=== PATIENT | female | born 1980 | race Caucasian/White ===

== ENCOUNTER 2021-05-18 17:30 | Emergency (ER) | payer MEDICAID, SELFPAY ==
[2021-05-18 17:32] VITALS: BP 137/73; PULSE 95; RESP 18; TEMP 36.7; O2SAT 98; BMI 24.5
--- NOTE | 2021-05-18 17:46 | HMH.EDANX ---
ED Disposition Clinical Impression: Anxiety Disposition: Home, Self-Care Condition on Discharge: Good Instructions: DI for Anxiety -- Adult Prescriptions: hydrOXYzine HCL [Hydroxyzine HCl] 25 mg PO TID PRN #15 tab PRN Reason: Anxiety Prescription Printed Referrals: Gayle Rivas APRN [Primary Care Provider] - 3 days - Critical Care Critical Care Time: No Attestation: On , the high probability of a clinically significant, sudden or life threatening deterioration of the following system(s) required my full and direct attention, intervention and personal management. The time I documented below is in addition to time spent performing reported procedures but includes the following listed in this critical care notation. Medical Decision Making - Murphy Inquiry Pt receiving controlled substance: No Orders (Tests/Meds): ED MEDICATIONS Discontinued Medications Generic Name Dose Route Start Last Admin Trade Name Freq PRN Reason Stop Dose Admin Hydroxyzine Pamoate 50 mg 05/18/21 17:43 Hydroxyzine Pamoate 25mg Capsule PO 05/18/21 17:44 ONCE ONE Medical Decision Narrative: Patient with anxiety attack typical for her usual symptoms. She improved with Vistaril here. No suicidal or homicidal ideation. Discussed follow-up with PCP and consideration of SSRIs, counseling. No objective shortness of breath, PERC negative. No chest pain that would suggest ACS. Patient agreeable with plan, discharged home. Anxiety HPI - General Stated Complaint: Anixiety ,sob Time Seen by Provider: 05/18/21 17:46 Mode of Arrival: Ambulatory Source of Information: Patient Limitations: No Limitations - History of Present Illness HPI narrative: This is a 41-year-old female with a past medical history significant for anxiety, depression who presents to the emergency department for evaluation of anxiety attack that started tonight just prior to arrival while she was sitting on the couch watching TV at home. No known particular exacerbating or alleviating factors. It caused her to be tearful and feels short of breath, though she knows objectively she is not. No chest pain. She has about 2 these episodes a month and does not currently take any SSRIs. She denies any suicidal or homicidal ideation. No recent illnesses or fevers. - Related Data Home Medications: Home Medications Medication Instructions Recorded Confirmed escitalopram oxalate 10 mg tablet 5 mg PO HS tab 10/10/17 hydroxyzine pamoate 25 mg capsule 25 mg PO TID PRN cap 10/10/17 Previous Rx's Medication Instructions Recorded hydrOXYzine HCL [Hydroxyzine HCl] 25 mg PO TID PRN #15 tab 05/18/21 Allergies/Adverse Reactions: Allergies Allergy/AdvReac Type Severity Reaction Status Date / Time No Known Allergies Allergy Verified 10/10/17 08:55 [facility] History - Hepatitis A Screen Attestation statement:: This patient has been screened for Hepatitis A risk factors. I have reviewed the patient's past medical history: Yes Medical History: Reports:: Anxiety, Depression ROS Obtained: Yes All systems reviewed & no additional complaints Physical Exam - General General appearance: alert, anxious - Head Head exam: atraumatic, normocephalic - Eye Eye exam: Present: normal appearance, PERRL - ENT ENT exam: Present: normal exam, normal oropharynx, mucous membranes moist - Respiratory Respiratory exam: Present: normal lung sounds bilaterally. Absent: respiratory distress - Cardiovascular Cardiovascular exam: Present: regular rate, normal rhythm - Abdominal Exam Abdominal exam: Present: soft. Absent: distention, tenderness, guarding - Neurological Exam Neurological exam: Present: alert, oriented X3 - Skin Skin exam: Present: warm, dry
[2021-05-18 18:10] VITALS: BP 146/82; PULSE 83; RESP 18; TEMP 36.8; O2SAT 98
== END 2021-05-18 18:16 | disposition home or self-care (01) ==
PROVIDERS: Emergency Provider Emergency Medicine; PCP Nurse Practitioner Family
DX: F41.9 Anxiety disorder, unspecified (principal); Z79.899 Other long term (current) drug therapy
CPT/HCPCS: 99281

== ENCOUNTER → 2021-06-01 16:09 | Outpatient (CLI) | payer MEDICAID, SELFPAY ==
[2021-06-01 16:30] LABS: Basophils # 0.1 K/mm3 (0-0.2); Basophils % 0.7 % (0.1-2.0); Eosinophils # 0.1 K/mm3 (0.0-0.4); Eosinophils % 0.5 % (0.1-12.0); Hematocrit 49.1 % (37.0-47.0); Hemoglobin 16.4 g/dL (12.2-16.2); Lymphocytes # 1.7 K/mm3 (0.7-4.5); Lymphocytes % 16.5 % (10-50); Mean Corpuscular HGB Conc 33.3 g/dL (31.8-35.4); Mean Corpuscular Hemoglobin 32.1 pg (27.0-31.2); Mean Corpuscular Volume 96.6 fl (81-99); Mean Platelet Volume 9.6 fl (7.4-10.4); Monocytes # 0.6 K/mm3 (0.1-1.0); Monocytes % 5.7 % (1.7-9.3); Neutrophils # 8.1 K/mm3 (1.8-7.8); Neutrophils % 76.7 % (37.0-80.0); Platelet Count 306 K/mm3 (142-424); Red Blood Count 5.09 M/mm3 (4.20-5.40); Red Cell Distribution Width 12.6 % (11.5-17.5); White Blood Count 10.6 K/mm3 (4.8-10.8)
[2021-06-01 17:57] LABS: Free T4 (Free Thyroxine) 0.98 ng/dl (0.78-2.19)
[2021-06-01 18:04] LABS: Alanine Aminotransferase 13 U/L (12-78); Albumin Level 4.7 g/dl (3.5-5.0); Albumin/Globulin Ratio 1.6 (1.1-1.8); Alkaline Phosphatase 49 U/L (38-126); Anion Gap 19.9 mEq/L (5-15); Aspartate Amino Transferase 21 U/L (14-36); Bilirubin,Total 0.4 mg/dl (0.2-1.3); Blood Urea Nitrogen 11 mg/dl (7-17); Calcium 9.6 mg/dl (8.4-10.2); Carbon Dioxide 24 mmol/L (22.0-30.0); Chloride 100 mmol/L (98-107); Chol/HDL Ratio 4.5 (1-3.5); Cholesterol 263 mg/dl (140-200); Estimated Glomerular Filt Rate 92 ml/min (>60); GFR (African American) 112 ML/MIN (>60); Globulin 2.9 g/dL (1.3-3.2); Glucose 83 mg/dl (74-100); HDL Cholesterol 58 mg/dl (40-60); Potassium 4.9 mmoL/L (3.5-5.1); Sodium 139 mmol/L (136-145); Total Protein,Serum 7.6 g/dl (6.3-8.2); Triglycerides 88 mg/dl (30-150); VLDL Cholesterol 18 mg/dL (0-40)
[2021-06-01 18:35] LABS: Thyroid Stimulating Hormone 1.37 uIU/mL (0.465-4.68)
== END ==
PROVIDERS: Visit Provider Nurse Practitioner Family
DX: Z00.00 Encounter for general adult medical examination without abnormal findings (principal)
CPT/HCPCS: 80053; 80061; 84439; 84443; 85025

== ENCOUNTER 2021-06-10 06:25 | Emergency (ER) | payer MEDICAID, SELFPAY ==
[2021-06-10 06:27] VITALS: BP 119/50; PULSE 77; RESP 17; TEMP 36.9; O2SAT 99; BMI 26.4
[2021-06-10 06:40] VITALS: BP 119/50; PULSE 91; RESP 18; O2SAT 98
[2021-06-10 06:48] VITALS: BMI 26.4
[2021-06-10 07:06] LABS: Microscopic, Urine URINE MICROSCOPIC (MICROSCOPIC)
[2021-06-10 07:12] LABS: Basophils # 0.1 K/mm3 (0-0.2); Eosinophils # 0.3 K/mm3 (0.0-0.4); Eosinophils % 2.7 % (0.1-12.0); Hematocrit 42.7 % (37.0-47.0); Hemoglobin 13.8 g/dL (12.2-16.2); Lymphocytes # 2.8 K/mm3 (0.7-4.5); Lymphocytes % 26.9 % (10-50); Mean Corpuscular HGB Conc 32.2 g/dL (31.8-35.4); Mean Corpuscular Hemoglobin 31.2 pg (27.0-31.2); Mean Corpuscular Volume 96.9 fl (81-99); Monocytes # 0.8 K/mm3 (0.1-1.0); Monocytes % 7.2 % (1.7-9.3); Neutrophils # 6.5 K/mm3 (1.8-7.8); Neutrophils % 62.2 % (37.0-80.0); Platelet Count 287 K/mm3 (142-424); Red Blood Count 4.41 M/mm3 (4.20-5.40); Red Cell Distribution Width 12.9 % (11.5-17.5); White Blood Count 10.4 K/mm3 (4.8-10.8)
[2021-06-10 07:13] LABS: Appearance,Urine SL CLOUDY (Clear); Bilirubin,Urine Negative (Negative); Blood, Urine Negative (Negative); Color,Urine YELLOW (Yellow); Glucose,Urine (UA) Negative (Negative); Ketones,Urine Negative (Negative); Leukocyte Esterase,Urine Negative (Negative); Nitrate,Urine Negative (Negative); PH,Urine 5.5 (5.0-8.5); Protein,Urine Negative (Negative); Specific Gravity, Urine 1.015 (1.005-1.030); Urobilinogen,Urine 0.2 EU/dl (0.2)
[2021-06-10 07:16] LABS: Alanine Aminotransferase 59 U/L (12-78); Albumin Level 3.8 g/dl (3.5-5.0); Albumin/Globulin Ratio 1.4 (1.1-1.8); Alkaline Phosphatase 60 U/L (38-126); Anion Gap 10.7 mEq/L (5-15); Aspartate Amino Transferase 40 U/L (14-36); Bilirubin,Total 0.1 mg/dl (0.2-1.3); Blood Urea Nitrogen 11 mg/dl (7-17); Calcium 8.8 mg/dl (8.4-10.2); Carbon Dioxide 31 mmol/L (22.0-30.0); Chloride 102 mmol/L (98-107); Creatinine Clearance Estimated 93 mL/min (50-200); Estimated Glomerular Filt Rate 79 ml/min (>60); GFR (African American) 96 ML/MIN (>60); Globulin 2.8 g/dL (1.3-3.2); Glucose 101 mg/dl (74-100); Potassium 3.7 mmoL/L (3.5-5.1); Sodium 140 mmol/L (136-145); Total Protein,Serum 6.6 g/dl (6.3-8.2)
[2021-06-10 07:23] LABS: Amorphous Sediment,Urine 1+ /lpf
[2021-06-10 07:27] LABS: NT Pro Brain Natriuretic Pep. 255 pg/mL (0-125)
[2021-06-10 07:30] VITALS: BP 104/45; PULSE 74; RESP 20; O2SAT 96
[2021-06-10 07:34] LABS: Procalcitonin 0.071 ng/mL (0.0-2.0)
--- NOTE | 2021-06-10 07:39 | HMH.EDEXTP ---
ED Disposition Clinical Impression: Lower extremity edema, Abnormal drug screen Disposition: Home, Self-Care Condition on Discharge: Good Instructions: DI for Peripheral Edema -- Bilateral Additional Instructions: see pcp next saturday and monitor diet Prescriptions: hydroCHLOROthiazide [HCTZ 12.5mg cap] 12.5 mg PO DAILY #10 cap Transmission Status: Pending to [id number] Referrals: Kari Alcala PA [Primary Care Provider] - - Critical Care Critical Care Time: No Attestation: On 06/10/21, the high probability of a clinically significant, sudden or life threatening deterioration of the following system(s) required my full and direct attention, intervention and personal management. The time I documented below is in addition to time spent performing reported procedures but includes the following listed in this critical care notation. Medical Decision Making - Medical Records Medical records reviewed: Yes: I reviewed the patient's medical records. - Murphy Inquiry Pt receiving controlled substance: No Vital Signs: 06/10/21 06:27 06/10/21 06:40 06/10/21 07:30 Temperature 98.5 F Temperature Source Oral Pulse Rate 91 H 74 Pulse Rate [Right] 77 Respiratory Rate 17 18 20 Blood Pressure 119/50 L 104/45 L Blood Pressure [Right Arm] 119/50 L Blood Pressure Mean 67 65 Blood Pressure Mean [Right Arm] 73 02 Sat by Pulse Oximetry 99 98 96 Oxygen Delivery Method Room Air - Lab Data Lab results reviewed: Yes: I reviewed the patient's lab results. Lab Results 06/10/21 06:35: Urine Color Yellow, Urine Appearance Sl cloudy, Urine pH 5.5, Ur Specific [place] 1.015, Urine Protein Negative, Urine Glucose (UA) Negative, Urine Ketones Negative, Urine Blood Negative, Urine Nitrate Negative, Urine Bilirubin Negative, Urine Urobilinogen 0.2, Ur Leukocyte Esterase Negative, Urine RBC None, Urine WBC None, Ur Squamous Epith Cells 10-20, Amorphous Sediment 1+, Urine Bacteria None 06/10/21 06:35: Urine Opiates Screen Positive H, Urine Methadone Screen Negative, Ur Barbituates Screen Negative, Ur Phencyclidine Scrn Negative, Ur Amphetamines Screen Negative, U Benzodiazepines Scrn Positive H, U Marijuana (THC) Screen Negative 06/10/21 06:40: WBC 10.4, RBC 4.41, Hgb 13.8, Hct 42.7, MCV 96.9, MCH 31.2, MCHC 32.2, RDW 12.9, Plt Count 287, MPV 9.0, Neut % (Auto) 62.2, Lymph % (Auto) 26.9, [place] % (Auto) 7.2, Eos % (Auto) 2.7, Baso % (Auto) 1.0, Neut # (Auto) 6.5, Lymph # (Auto) 2.8, [place] # (Auto) 0.8, Eos # (Auto) 0.3, Baso # (Auto) 0.1 06/10/21 06:40: Sodium 140, Potassium 3.7, Chloride 102, Carbon Dioxide 31 H, Anion Gap 10.7, BUN 11, Creatinine 0.80, Estimated Creat Clear 93, Estimated GFR 79, Est GFR ( Amer) 96, Glucose 101 H, Calcium 8.8, Total Bilirubin 0.1 L, AST 40 H, ALT 59, Alkaline Phosphatase 60, C-Reactive Protein 7.0 H, NT-Pro-B Natriuret Pep 255 H, Total Protein 6.6, Albumin 3.8, Globulin 2.8, Albumin/Globulin Ratio 1.4, Procalcitonin 0.071 06/10/21 06:40: TSH 2.78, Thyroxine (T4) 8.4 Result diagrams: 06/10/21 06:40 06/10/21 06:40 Orders (Tests/Meds): ED MEDICATIONS Discontinued Medications Generic Name Dose Route Start Last Admin Trade Name Freq PRN Reason Stop Dose Admin Furosemide 20 mg 06/10/21 07:44 06/10/21 07:49 Furosemide 20 Mg/2 Ml Vial IV 06/10/21 07:45 20 mg ONCE ONE Administration ORDERS Category Date Time Status UDS [Drug Screen,Urine] Stat Lab 06/10/21 06:35 Results Medical Decision Narrative: had 600 ml after lasix and anastacio ask pt to use low carb and sodium diet and discussed uds with pt Extremity Problem HPI - General Chief complaint: Extremity Problem,Nontraumatic Stated complaint: Swelling in feet and face Time Seen by Provider: 06/10/21 07:00 Mode of Arrival: Family Vehicle Source of Information: Patient, Medical Record Limitations: No Limitations Description of Symptoms (Recalled from ER Triage Doc. by RN): Pt c/o face fe
[2021-06-10 08:04] LABS: Amphetamine/Metha Screen,Urine Negative ng/ml (<1000)
[2021-06-10 08:05] LABS: Barbiturates Screen,Urine Negative ng/ml (<200); Benzodiazepines Screen,Urine Positive ng/ml (<200)
[2021-06-10 08:06] LABS: Cannabinoid Screen,Urine Negative ng/ml (<50)
[2021-06-10 08:07] LABS: Methadone Screen,Urine Negative ng/ml (<300)
[2021-06-10 08:08] LABS: Opiate Screen,Urine Positive ng/ml (<300)
[2021-06-10 08:08] LABS: T4 (Thyroxine) 8.4 ug/dl (5.53-11.0)
[2021-06-10 08:09] LABS: Phencyclidine Screen,Urine Negative ng/ml (<25)
--- NOTE | 2021-06-10 08:12 | PC.NURSE ---
200cc urine output
[2021-06-10 08:22] LABS: Thyroid Stimulating Hormone 2.78 uIU/mL (0.465-4.68)
[2021-06-10 08:52] LABS: Cocaine Screen,Urine Negative ng/ml (<300)
--- NOTE | 2021-06-10 08:52 | PC.NURSE ---
400 cc urine output
[2021-06-10 09:07] VITALS: BP 118/63; PULSE 71; RESP 16; TEMP 36.8; O2SAT 98
== END 2021-06-10 09:09 | disposition home or self-care (01) ==
PROVIDERS: Emergency Provider Emergency Medicine; PCP Physician Assistant
DX: R60.0 Localized edema (principal); R89.2 Abnormal level of other drugs, medicaments and biological substances in specimens from other organs, systems and tissues; F41.8 Other specified anxiety disorders
CPT/HCPCS: 80053; 80305; 81001; 83880; 84145; 84436; 84443; 85025; 86140; 96374; 99282

== ENCOUNTER 2021-07-31 19:54 | Emergency (ER) | payer MEDICAID, SELFPAY ==
[2021-07-31 19:54] VITALS: BP 138/79; PULSE 85; RESP 18; TEMP 36.9; O2SAT 99; BMI 26.4
--- NOTE | 2021-07-31 20:15 | CT_ITS ---
PROCEDURE INFORMATION: Exam: CT Thoracic Spine With Contrast Exam date and time: 07/31/2021 8:15 PM Age: 41 years old Clinical indication: Pain in thoracic spine; Patient HX: Neck pain, numbness and tingling in arms off and on; Additional info: Neck pain, no trauma TECHNIQUE: Imaging protocol: Computed tomography images of the thoracic spine with intravenous contrast. Radiation optimization: All CT scans at this facility use at least one of these dose optimization techniques: automated exposure control; mA and/or kV adjustment per patient size (includes targeted exams where dose is matched to clinical indication); or iterative reconstruction. Contrast material: ISOVUE; Contrast volume: 75 ml; Contrast route: IV; COMPARISON: CT CERVICAL SPINE W CON 07/31/2021 8:45 PM FINDINGS: Vertebrae: Mild scoliosis and degenerative changes. No acute fracture or dislocation. Soft tissues: Unremarkable. Lungs: Streaky dependent pulmonary opacities and dependent subpleural nodules measuring up to 4 mm which are not further evaluated. IMPRESSION: Chronic changes without definite acute osseous abnormality. If there is ongoing concern MRI can be obtained for further evaluation.
--- NOTE | 2021-07-31 20:15 | CT_ITS ---
PROCEDURE INFORMATION: Exam: CT Cervical Spine With Contrast Exam date and time: 07/31/2021 8:15 PM Age: 41 years old Clinical indication: Patient HX: Neck pain, numbness and tingling in arms off and on; Additional info: Neck pain, no trauma TECHNIQUE: Imaging protocol: Computed tomography images of the cervical spine with intravenous contrast. Radiation optimization: All CT scans at this facility use at least one of these dose optimization techniques: automated exposure control; mA and/or kV adjustment per patient size (includes targeted exams where dose is matched to clinical indication); or iterative reconstruction. Contrast material: ISOVUE; Contrast volume: 75 ml; Contrast route: IV; COMPARISON: No relevant prior studies available. FINDINGS: Bones/joints: Mild degenerative changes of the cervical spine most prominent at C5-C6 where there is a 4 mm disc bulge. No acute fracture. Lungs: Lung apices are normal. Soft tissues: Unremarkable. IMPRESSION: Degenerative changes of the cervical spine most prominent at C5-C6 where there is a 4 mm disc bulge. Consider MRI for further evaluation.
[2021-07-31 20:23] LABS: Basophils # 0.2 K/mm3 (0-0.2); Basophils % 1.5 % (0.1-2.0); Eosinophils # 0.2 K/mm3 (0.0-0.4); Eosinophils % 1.9 % (0.1-12.0); Hematocrit 47.2 % (37.0-47.0); Hemoglobin 15.5 g/dL (12.2-16.2); Lymphocytes # 2.9 K/mm3 (0.7-4.5); Lymphocytes % 28.5 % (10-50); Mean Corpuscular HGB Conc 32.8 g/dL (31.8-35.4); Mean Corpuscular Volume 94.7 fl (81-99); Mean Platelet Volume 8.4 fl (7.4-10.4); Monocytes # 0.6 K/mm3 (0.1-1.0); Monocytes % 5.7 % (1.7-9.3); Neutrophils # 6.3 K/mm3 (1.8-7.8); Neutrophils % 62.3 % (37.0-80.0); Platelet Count 320 K/mm3 (142-424); Red Blood Count 4.98 M/mm3 (4.20-5.40); Red Cell Distribution Width 12.6 % (11.5-17.5); White Blood Count 10.1 K/mm3 (4.8-10.8)
[2021-07-31 20:30] LABS: Microscopic, Urine URINE MICROSCOPIC (MICROSCOPIC)
[2021-07-31 20:33] LABS: Appearance,Urine SL CLOUDY (Clear); Bilirubin,Urine Negative (Negative); Blood, Urine TRACE-I (Negative); Color,Urine YELLOW (Yellow); Glucose,Urine (UA) Negative (Negative); Ketones,Urine Negative (Negative); Leukocyte Esterase,Urine Negative (Negative); Nitrate,Urine POSITIVE (Negative); Protein,Urine Negative (Negative); Specific Gravity, Urine 1.025 (1.005-1.030); Urobilinogen,Urine 0.2 EU/dl (0.2)
[2021-07-31 20:34] LABS: Alanine Aminotransferase 18 U/L (12-78); Albumin/Globulin Ratio 1.3 (1.1-1.8); Alkaline Phosphatase 63 U/L (38-126); Anion Gap 9.1 mEq/L (5-15); Aspartate Amino Transferase 31 U/L (14-36); Blood Urea Nitrogen 9 mg/dl (7-17); Calcium 9.2 mg/dl (8.4-10.2); Carbon Dioxide 31 mmol/L (22.0-30.0); Chloride 104 mmol/L (98-107); Creatinine Clearance Estimated 93 mL/min (50-200); Estimated Glomerular Filt Rate 79 ml/min (>60); GFR (African American) 96 ML/MIN (>60); Globulin 3.1 g/dL (1.3-3.2); Glucose 134 mg/dl (74-100); Potassium 4.1 mmoL/L (3.5-5.1); Sodium 140 mmol/L (136-145); Total Protein,Serum 7.1 g/dl (6.3-8.2)
[2021-07-31 20:36] LABS: Bilirubin,Total < 0.1 mg/dl (0.2-1.3)
[2021-07-31 20:40] LABS: C-Reactive Protein 4.9 mg/L (0-4)
[2021-07-31 20:44] LABS: Bacteria,Urine 2+ /lpf; Benzodiazepines Screen,Urine Positive ng/ml (<200)
[2021-07-31 20:45] LABS: Amphetamine/Metha Screen,Urine Negative ng/ml (<1000)
[2021-07-31 20:46] LABS: Barbiturates Screen,Urine Negative ng/ml (<200); Cannabinoid Screen,Urine Negative ng/ml (<50)
[2021-07-31 20:47] LABS: Cocaine Screen,Urine Negative ng/ml (<300)
[2021-07-31 20:48] LABS: Methadone Screen,Urine Negative ng/ml (<300); Opiate Screen,Urine Positive ng/ml (<300)
[2021-07-31 20:49] LABS: Phencyclidine Screen,Urine Negative ng/ml (<25)
[2021-07-31 20:53] LABS: Procalcitonin 0.045 ng/mL (0.0-2.0)
[2021-07-31 21:15] LABS: Erythrocyte Sedimentation Rate 20 mm/hr (0-20)
--- NOTE | 2021-07-31 22:25 | HMH.EDNECK ---
ED Disposition Clinical Impression: Cervical radiculopathy Disposition: Home, Self-Care Condition on Discharge: Good Instructions: DI for Neck Pain Additional Instructions: see pcp for follow up this week Prescriptions: predniSONE [Prednisone 20mg Tab] 20 mg PO BID #10 tab Transmission Status: Pending to [id number] Referrals: Kari Alcala PA [Primary Care Provider] - - Critical Care Critical Care Time: No Attestation: On 07/31/21, the high probability of a clinically significant, sudden or life threatening deterioration of the following system(s) required my full and direct attention, intervention and personal management. The time I documented below is in addition to time spent performing reported procedures but includes the following listed in this critical care notation. Medical Decision Making - Medical Records Medical records reviewed: Yes: I reviewed the patient's medical records. - Murphy Inquiry Pt receiving controlled substance: No Vital Signs: 07/31/21 19:54 Temperature 98.5 F Temperature Source Oral Pulse Rate [Right] 85 Respiratory Rate 18 Blood Pressure [Right Arm] 138/79 Blood Pressure Mean [Right Arm] 98 Blood Pressure Source [Right Arm] Automatic Cuff 02 Sat by Pulse Oximetry 99 Oxygen Delivery Method Room Air - Lab Data Lab results reviewed: Yes: I reviewed the patient's lab results. Lab Results 07/31/21 20:15: WBC 10.1, RBC 4.98, Hgb 15.5, Hct 47.2 H, MCV 94.7, MCH 31.0, MCHC 32.8, RDW 12.6, Plt Count 320, MPV 8.4, Neut % (Auto) 62.3, Lymph % (Auto) 28.5, [place] % (Auto) 5.7, Eos % (Auto) 1.9, Baso % (Auto) 1.5, Neut # (Auto) 6.3, Lymph # (Auto) 2.9, [place] # (Auto) 0.6, Eos # (Auto) 0.2, Baso # (Auto) 0.2, ESR 20 07/31/21 20:15: Sodium 140, Potassium 4.1, Chloride 104, Carbon Dioxide 31 H, Anion Gap 9.1, BUN 9, Creatinine 0.80, Estimated Creat Clear 93, Estimated GFR 79, Est GFR ( Amer) 96, Glucose 134 H, Calcium 9.2, Total Bilirubin < 0.1 L, AST 31, ALT 18, Alkaline Phosphatase 63, C-Reactive Protein 4.9 H, Total Protein 7.1, Albumin 4.0, Globulin 3.1, Albumin/Globulin Ratio 1.3, Procalcitonin 0.045 07/31/21 20:25: Urine Color Yellow, Urine Appearance Sl cloudy, Urine pH 6.0, Ur Specific [place] 1.025, Urine Protein Negative, Urine Glucose (UA) Negative, Urine Ketones Negative, Urine Blood Trace-i, Urine Nitrate Positive, Urine Bilirubin Negative, Urine Urobilinogen 0.2, Ur Leukocyte Esterase Negative, Urine RBC 3-5, Urine WBC 5-10, Ur Squamous Epith Cells 5-10, Urine Bacteria 2+ 07/31/21 20:25: Urine Opiates Screen Positive H, Urine Methadone Screen Negative, Ur Barbituates Screen Negative, Ur Phencyclidine Scrn Negative, Ur Amphetamines Screen Negative, U Benzodiazepines Scrn Positive H, Urine Cocaine Screen Negative, U Marijuana (THC) Screen Negative Result diagrams: 07/31/21 20:15 07/31/21 20:15 Orders (Tests/Meds): ED MEDICATIONS Generic Name Dose Route Start Last Admin Trade Name Freq PRN Reason Stop Dose Admin Sodium Chloride 1,000 mls @ 999 mls/hr 07/31/21 20:45 07/31/21 20:36 Sod Chlor 0.9% 1000ml Bag IV 07/31/21 21:45 999 mls/hr .Q1H1M CHECO Administration Discontinued Medications Generic Name Dose Route Start Last Admin Trade Name Freq PRN Reason Stop Dose Admin Iopamidol 150 ml 07/31/21 21:02 07/31/21 21:02 Iopamidol-370 (76%);100ml Bottle IV 07/31/21 21:03 150 ml ONCE ONE Administration Ketorolac Tromethamine 30 mg 07/31/21 20:32 07/31/21 20:35 Ketorolac 30mg/Ml Vial IV 07/31/21 20:33 30 mg ONCE ONE Administration Methylprednisolone Sodium Succinate 125 mg 07/31/21 20:32 07/31/21 20:35 Methylprednisolone Sod Succ 125mg Vial IV 07/31/21 20:33 125 mg ONCE ONE Administration Sodium Chloride 10 ml 07/31/21 21:02 07/31/21 21:02 Sodium Chloride 0.9% 10ml Syr (Rad Only) IV 07/31/21 21:03 10 ml ONCE ONE Administration ORDERS Category Date Time Status Urine Culture St
[2021-07-31 22:26] VITALS: BP 138/79; PULSE 85; RESP 18; TEMP 36.9; O2SAT 98
== END 2021-07-31 22:42 | disposition home or self-care (01) ==
PROVIDERS: Emergency Provider Emergency Medicine; PCP Physician Assistant
DX: M54.12 Radiculopathy, cervical region (principal); F41.8 Other specified anxiety disorders
CPT/HCPCS: 72126; 72129; 80053; 80305; 81001; 84145; 85025; 85651; 86140; 87086; 87088; 87186; 99283; Q9967

== ENCOUNTER 2021-08-23 13:29 | Emergency (ER) | payer MEDICAID, SELFPAY ==
[2021-08-23 13:31] VITALS: BP 122/70; PULSE 75; RESP 18; TEMP 36.8; O2SAT 98; BMI 27.3
--- NOTE | 2021-08-23 13:59 | XR_ITS ---
PROCEDURE: XR CHEST PORTABLE CLINICAL HISTORY: Cough COMPARISON: No exams were available for comparison FINDINGS: The cardiomediastinal silhouette and pulmonary vascularity are within normal limits. The lungs are clear without infiltrates, suspicious nodules, or pleural effusions. No acute bony abnormalities. IMPRESSION: No acute findings. Dictated by: Darci Pham MD 08/23/2021 15:14 Darci Pham MD in [place] 08/23/2021 15:14
--- NOTE | 2021-08-23 14:58 | HMH.EDURI ---
ED Disposition Clinical Impression: Upper respiratory infection Disposition: Home, Self-Care Condition on Discharge: Fair Instructions: DI for Acute Bronchitis Referrals: Kari Alcala PA [Primary Care Provider] - - Critical Care Critical Care Time: No Attestation: On 08/23/21, the high probability of a clinically significant, sudden or life threatening deterioration of the following system(s) required my full and direct attention, intervention and personal management. The time I documented below is in addition to time spent performing reported procedures but includes the following listed in this critical care notation. Medical Decision Making - Murphy Inquiry Pt receiving controlled substance: No Vital Signs: 08/23/21 13:31 Temperature 98.2 F Temperature Source Oral Pulse Rate [Right Radial] 75 Respiratory Rate 18 Blood Pressure [Right Arm] 122/70 Blood Pressure Mean [Right Arm] 87 Blood Pressure Source [Right Arm] Automatic Cuff Blood Pressure Position [Right Arm] Sitting 02 Sat by Pulse Oximetry 98 Oxygen Delivery Method Room Air Orders (Tests/Meds): ED MEDICATIONS Discontinued Medications Generic Name Dose Route Start Last Admin Trade Name Vernq PRN Reason Stop Dose Admin Acetaminophen 1,000 mg 08/23/21 13:59 08/23/21 15:04 Acetaminophen 500mg Tab PO 08/23/21 14:00 1,000 mg ONCE ONE Administration Lactated Ringer's 1,000 mls @ 999 mls/hr 08/23/21 14:00 08/23/21 15:06 Lactated Ringer's 1000 Ml Bag IV 08/23/21 15:00 999 mls/hr .Q1H1M CHECO Administration Ibuprofen 800 mg 08/23/21 13:59 08/23/21 15:04 Ibuprofen 400 Mg Tablet PO 08/23/21 14:00 800 mg ONCE ONE Administration ORDERS Category Date Time Status XR chest portable Stat Exams 08/23/21 13:59 Taken Rapid PCR Covid and Flu A/B Stat Lab 08/23/21 13:59 Ordered Medical Decision Narrative: Patient is a 41-year-old female with no past medical history presenting to the ED with cough and sore throat. Patient is awake, alert, not in acute distress. Patient is hemodynamically stable, afebrile. Patient's physical exam is unremarkable, she has clear breath sounds bilaterally. Soft nondistended nontender abdomen to differential includes but is not limited to viral upper respiratory infection, COVID-19, viral pneumonia, very low concern for a bacterial pneumonia. Given this chest x-ray was performed. Patient was given IV fluids, Tylenol, ibuprofen. She was swabbed for Covid. She feels much better after the IV fluids she is stable for discharge at this point. She is given strict return precautions and follow-up instructions. URI/Sore Throat HPI - General Chief Complaint: Upper Respiratory Infection Stated Complaint: fever, chills, sore throat, soa, cough Time Seen by Provider: 08/23/21 14:45 Mode of Arrival: Ambulatory Limitations: No Limitations Description of Symptoms (Recalled from ER Triage Doc. by RN): Pt reports productive cough x3 days, fever and sore throat. - History of Present Illness HPI Narrative: Patient is a 41-year-old female with no past medical history presenting to the ED with sore throat and a cough. Patient states that she has been ill for approximately 3 days. Patient states her symptoms started off as a runny nose with sore throat and cough. Patient states that she has mild fevers, chills. Patient denies any sick contacts. Patient is not vaccinated against COVID-19. Denies any nausea, vomiting, abdominal pain, urinary symptoms, diarrhea. - Related Data Home Medications Medication Instructions Recorded Confirmed Hydrocod/Acet 5/325 mg [[place] 1 tab PO Q6HP PRN 07/31/21 07/31/21 5/325mg tablet] hydrOXYzine HCL [Hydroxyzine HCl] See Rx Instructions .ROUTE .COMPLEX 07/31/21 07/31/21 Previous Rx's Medication Instructions Recorded predniSONE [Prednisone 20mg 20 mg PO BID #10 tab 07/31/21 Tab] Allergies Allergy/AdvReac Type Severity
[2021-08-23 16:18] LABS: Coronavirus 19, PCR Not Detected (NotDetected); Influenza A, PCR Not Detected (NotDetected); Influenza B, PCR Not Detected (NotDetected)
[2021-08-23 16:42] VITALS: BP 122/70; PULSE 75; RESP 18; TEMP 36.8; O2SAT 98
== END 2021-08-23 16:42 | disposition home or self-care (01) ==
PROVIDERS: Emergency Provider Emergency Medicine; PCP Physician Assistant
DX: J06.9 Acute upper respiratory infection, unspecified (principal); F41.8 Other specified anxiety disorders; Z20.822 Contact with and (suspected) exposure to COVID-19
CPT/HCPCS: 71045; 96365; 99282; C9803; U0003; U0005

== ENCOUNTER 2021-10-15 18:22 | Emergency (ER) | payer MEDICAID, SELFPAY ==
[2021-10-15 18:23] VITALS: BP 136/68; PULSE 116; RESP 18; TEMP 37.9; O2SAT 99; BMI 25.4
[2021-10-15 18:36] VITALS: BMI 25.4
[2021-10-15 18:39] LABS: Influenza A, PCR Not Detected (NotDetected); Influenza B, PCR Not Detected (NotDetected)
[2021-10-15 19:04] LABS: Coronavirus 19, PCR Detected (NotDetected)
--- NOTE | 2021-10-15 19:20 | HMH.EDGENADL ---
ED Disposition Clinical Impression: COVID-19 virus infection Disposition: Home, Self-Care Condition on Discharge: Good Instructions: DI for COVID-19 (Suspected or Confirmed ) Additional Instructions: Rest, drink plenty of fluids. Tylenol or Ibuprofen for fever and/or aches and pains. Zofran as needed for nausea. Monitor your symptoms. IF YOU HAVE AN EMERGENCY WARNING SIGN (INCLUDING TROUBLE BREATHING), SEEK EMERGENCY MEDICAL CARE IMMEDIATELY. COVID-19 Isolation: People with COVID-19 should isolate for 5 days. Then if they are asymptomatic (no symptoms) or their symptoms are resolving (without fever for 24 hours), follow that by 5 days of wearing a mask when around others to minimize the risk of infecting people you encounter. If you test positive for COVID-19 and never develop symptoms, day 0 is the day of your positive viral test (based on the date you were tested) and day 1 is the first full day after your positive test. If you develop symptoms after testing positive, your 5-day isolation period must start over. Day 0 is your first day of symptoms. Day 1 is the first full day after your symptoms developed. What to do: Stay in a separate room from other household members, if possible. Use a separate bathroom, if possible. Avoid contact with other members of the household and pets. Don?t share personal household items, like cups, towels, and utensils. Wear a mask when around other people if able. Prescriptions: Ondansetron [Zofran 4mg ODT] 4 mg PO TIDP PRN #10 tab PRN Reason: Nausea And Vomiting Transmission Status: Pending to [id number] Referrals: Kari Alcala PA [Primary Care Provider] - - Critical Care Critical Care Time: No Attestation: On 10/15/21, the high probability of a clinically significant, sudden or life threatening deterioration of the following system(s) required my full and direct attention, intervention and personal management. The time I documented below is in addition to time spent performing reported procedures but includes the following listed in this critical care notation. Medical Decision Making - Murphy Inquiry Pt receiving controlled substance: No Vital Signs: 10/15/21 18:23 Temperature 100.3 F H Temperature Source Oral Pulse Rate [Right Radial] 116 H Respiratory Rate 18 Blood Pressure [Right Arm] 136/68 Blood Pressure Mean [Right Arm] 90 Blood Pressure Source [Right Arm] Automatic Cuff Blood Pressure Position [Right Arm] Sitting 02 Sat by Pulse Oximetry 99 Oxygen Delivery Method Room Air - Lab Data Lab Results 10/15/21 18:33: SARS-CoV-2 (PCR) Detected A, Influenza A Untype (PCR) Not detected, Influenza Type B (PCR) Not detected Orders (Tests/Meds): ED MEDICATIONS Discontinued Medications Generic Name Dose Route Start Last Admin Trade Name Kwasi PRN Reason Stop Dose Admin Acetaminophen 650 mg 10/15/21 18:36 10/15/21 18:42 Acetaminophen 325mg Tab PO 10/15/21 18:37 650 mg ONCE ONE Administration Ibuprofen 600 mg 10/15/21 18:36 10/15/21 18:42 Ibuprofen 600 Mg Tablet PO 10/15/21 18:37 600 mg ONCE ONE Administration Medical Decision Narrative: Developed nausea and dry heaves in the emergency department. Treated with Zofran. General Adult HPI - General Chief complaint: Fever Stated complaint: fever, chills Time Seen by Provider: 10/15/21 19:23 Mode of Arrival: Ambulatory Limitations: No Limitations Description of Symptoms (Recalled from ER Triage Doc. by RN): pt reports fever, chills and headache that began approx 12pm today. Pt reports her boyfriend is also sick with similar symptoms. - History of Present Illness HPI narrative: States she just got sick today. She has fevers, chills, body aches. Mild rhinorrhea. Minimal cough. No loss of taste or smell. She states that her boyfriend had similar symptoms yesterday and the day before but seems to be better today. Her boyfriend did
[2021-10-15 20:02] VITALS: BP 114/61; PULSE 96; RESP 20; TEMP 37.3; O2SAT 97
== END 2021-10-15 20:09 | disposition home or self-care (01) ==
PROVIDERS: Emergency Provider Emergency Medicine; PCP Physician Assistant
DX: U07.1 COVID-19 (principal); F41.8 Other specified anxiety disorders
CPT/HCPCS: 99282; C9803; U0003; U0005

== ENCOUNTER 2021-10-18 20:37 | Emergency (ER) | payer MEDICAID, SELFPAY ==
[2021-10-18 20:37] VITALS: BP 142/87; PULSE 72; RESP 20; TEMP 36.8; O2SAT 100; BMI 26.4
[2021-10-18 20:49] VITALS: BMI 26.4
--- NOTE | 2021-10-18 20:50 | XR_ITS ---
PROCEDURE INFORMATION: Exam: XR Chest Exam date and time: 10/18/2021 8:50 PM Age: 41 years old Clinical indication: Shortness of breath; Additional info: SOA TECHNIQUE: Imaging protocol: XR of the chest. Views: 2 views. COMPARISON: CR XR CHEST PORTABLE 08/23/2021 2:22 PM FINDINGS: Lungs: Coarse interstitial lung markings that are chronic. No consolidation. Pleural spaces: Unremarkable. No pleural effusion. No pneumothorax. Heart/Mediastinum: Unremarkable. No cardiomegaly. Bones/joints: Unremarkable. IMPRESSION: No acute findings.
[2021-10-18 21:01] VITALS: BP 111/52; PULSE 54; RESP 18; O2SAT 96
[2021-10-18 21:17] LABS: Basophils # 0.2 K/mm3 (0-0.2); Basophils % 3.6 % (0.1-2.0); Eosinophils % 0.8 % (0.1-12.0); Hematocrit 48.8 % (37.0-47.0); Hemoglobin 15.8 g/dL (12.2-16.2); Lymphocytes % 43.1 % (10-50); Mean Corpuscular HGB Conc 32.4 g/dL (31.8-35.4); Mean Corpuscular Hemoglobin 31.1 pg (27.0-31.2); Mean Platelet Volume 8.1 fl (7.4-10.4); Monocytes # 0.3 K/mm3 (0.1-1.0); Monocytes % 7.3 % (1.7-9.3); Neutrophils # 2.1 K/mm3 (1.8-7.8); Neutrophils % 45.2 % (37.0-80.0); Platelet Count 251 K/mm3 (142-424); Red Blood Count 5.09 M/mm3 (4.20-5.40); White Blood Count 4.7 K/mm3 (4.8-10.8)
[2021-10-18 21:31] LABS: Alanine Aminotransferase 17 U/L (12-78); Albumin Level 4.4 g/dl (3.5-5.0); Albumin/Globulin Ratio 1.6 (1.1-1.8); Alkaline Phosphatase 54 U/L (38-126); Anion Gap 9.9 mEq/L (5-15); Aspartate Amino Transferase 46 U/L (14-36); Bilirubin,Total 0.2 mg/dl (0.2-1.3); Blood Urea Nitrogen 7 mg/dl (7-17); Carbon Dioxide 28 mmol/L (22.0-30.0); Chloride 103 mmol/L (98-107); Creatinine Clearance Estimated 93 mL/min (50-200); Estimated Glomerular Filt Rate 79 ml/min (>60); GFR (African American) 96 ML/MIN (>60); Globulin 2.8 g/dL (1.3-3.2); Glucose 102 mg/dl (74-100); Potassium 3.9 mmoL/L (3.5-5.1); Sodium 137 mmol/L (136-145); Total Protein,Serum 7.2 g/dl (6.3-8.2)
[2021-10-18 21:36] LABS: C-Reactive Protein 1.3 mg/L (0-4)
[2021-10-18 21:45] LABS: Troponin I < 0.01 ng/ml (0.00-0.034)
[2021-10-18 21:49] LABS: Erythrocyte Sedimentation Rate 9 mm/hr (0-20); Procalcitonin 0.043 ng/mL (0.0-2.0)
--- NOTE | 2021-10-18 23:21 | HMH.EDSOB ---
ED Disposition Clinical Impression: COVID-19 virus infection Disposition: Home, Self-Care Condition on Discharge: Good Instructions: DI for COVID-19 (Suspected or Confirmed ) Additional Instructions: fluids and see pcp for follow up Referrals: Kari Alcala PA [Primary Care Provider] - - Critical Care Critical Care Time: No Attestation: On 10/18/21, the high probability of a clinically significant, sudden or life threatening deterioration of the following system(s) required my full and direct attention, intervention and personal management. The time I documented below is in addition to time spent performing reported procedures but includes the following listed in this critical care notation. Medical Decision Making - Medical Records Medical records reviewed: Yes: I reviewed the patient's medical records. - Murphy Inquiry Pt receiving controlled substance: No Vital Signs: 10/18/21 20:37 10/18/21 21:01 Temperature 98.3 F Temperature Source Oral Pulse Rate 54 L Pulse Rate [Right Radial] 72 Respiratory Rate 20 18 Blood Pressure 111/52 L Blood Pressure [Right Arm] 142/87 H Blood Pressure Mean [Right Arm] 105 Blood Pressure Source Automatic Cuff Blood Pressure Source [Right Arm] Automatic Cuff Blood Pressure Position Supine Blood Pressure Position [Right Arm] Sitting 02 Sat by Pulse Oximetry 100 96 Oxygen Delivery Method Room Air Room Air - Lab Data Lab results reviewed: Yes: I reviewed the patient's lab results. Lab Results 10/18/21 21:05: WBC 4.7 L, RBC 5.09, Hgb 15.8, Hct 48.8 H, MCV 96.0, MCH 31.1, MCHC 32.4, RDW 13.0, Plt Count 251, MPV 8.1, Neut % (Auto) 45.2, Lymph % (Auto) 43.1, Greene % (Auto) 7.3, Eos % (Auto) 0.8, Baso % (Auto) 3.6 H, Neut # (Auto) 2.1, Lymph # (Auto) 2.0, Greene # (Auto) 0.3, Eos # (Auto) 0.0, Baso # (Auto) 0.2 10/18/21 21:05: Sodium 137, Potassium 3.9, Chloride 103, Carbon Dioxide 28, Anion Gap 9.9, BUN 7, Creatinine 0.80, Estimated Creat Clear 93, Estimated GFR 79, Est GFR ( Amer) 96, Glucose 102 H, Calcium 9.0, Total Bilirubin 0.2, AST 46 H, ALT 17, Alkaline Phosphatase 54, Troponin I < 0.01, C-Reactive Protein 1.3, Total Protein 7.2, Albumin 4.4, Globulin 2.8, Albumin/Globulin Ratio 1.6 10/18/21 21:05: ESR 9 10/18/21 21:05: Procalcitonin 0.043 Result diagrams: 10/18/21 21:05 10/18/21 21:05 Orders (Tests/Meds): ED MEDICATIONS Generic Name Dose Route Start Last Admin Trade Name Freq PRN Reason Stop Dose Admin Sodium Chloride 1,000 mls @ 999 mls/hr 10/18/21 21:00 10/18/21 21:14 Sod Chlor 0.9% 1000ml Bag IV 10/18/21 22:00 999 mls/hr .Q1H1M CHECO Administration Sodium Chloride 10 ml 10/18/21 21:09 Sodium Chloride 0.9% 10ml Vial IV 11/17/21 21:08 NEEDED PRN to Dilute Lorazepam inj Sodium Chloride 10 ml 10/18/21 21:12 Sodium Chloride 0.9% 10ml Vial IV 11/17/21 21:11 NEEDED PRN to Dilute Lorazepam inj Discontinued Medications Generic Name Dose Route Start Last Admin Trade Name Freq PRN Reason Stop Dose Admin Dexamethasone Sodium Phosphate 10 mg 10/18/21 20:52 10/18/21 21:14 Dexamethasone 4mg/Ml 5ml Mdv IV 10/18/21 20:53 10 mg ONCE ONE Administration Lorazepam 0.5 mg 10/18/21 21:09 10/18/21 21:13 Lorazepam 2mg/Ml Vial IV 10/18/21 21:10 0.5 mg ONCE ONE Administration Lorazepam 0.5 mg 10/18/21 21:12 Lorazepam 2mg/Ml Vial IV 10/18/21 21:13 ONCE ONE Ondansetron HCl 4 mg 10/18/21 20:50 10/18/21 21:14 Ondansetron 4mg/2ml Vial IV 10/18/21 20:51 4 mg ONCE ONE Administration ORDERS Category Date Time Status Troponin I Q3H Lab 10/19/21 00:15 Ordered Troponin I Q3H Lab 10/19/21 03:15 Ordered - Radiology Data #1 Image(s): Chest Image Reviewed: Yes I have reviewed radiologist's interpretation Preliminary Findings: Normal/NAD Medical Decision Narrative: has covid -19 but stable labs and exam and xray Resp/SOB HPI - Gene
[2021-10-18 23:22] VITALS: BP 114/59; PULSE 53; RESP 18; O2SAT 95
[2021-10-18 23:31] VITALS: BP 124/65; PULSE 59; RESP 17; TEMP 37; O2SAT 98
== END 2021-10-18 23:35 | disposition home or self-care (01) ==
PROVIDERS: Emergency Provider Emergency Medicine; PCP Physician Assistant
DX: U07.1 COVID-19 (principal); F17.210 Nicotine dependence, cigarettes, uncomplicated
CPT/HCPCS: 71046; 80053; 84145; 84484; 85025; 85651; 86140; 96365; 96375; 99283; J2405

== ENCOUNTER 2021-11-30 11:18 | Emergency (ER) | payer MEDICAID, SELFPAY ==
[2021-11-30 11:19] VITALS: BP 119/48; PULSE 74; RESP 18; TEMP 36.8; O2SAT 99; BMI 28.5
--- NOTE | 2021-11-30 11:44 | HMH.EDGENADL ---
ED Disposition Clinical Impression: Blurry vision, Neck pain, Bilateral hip pain Headache Qualifiers: Headache type: unspecified Headache chronicity pattern: unspecified pattern Intractability: not intractable Qualified Code(s): R51.9 - Headache, unspecified Disposition: Home, Self-Care Condition on Discharge: Good Additional Instructions: Ibuprofen as needed for pain. Follow-up with your primary care provider, call to make an appointment. Return to the emergency department if worsening symptoms. Referrals: Kari Alcala PA [Primary Care Provider] - Forms: Work/School Release - Critical Care Critical Care Time: No Attestation: On 11/30/21, the high probability of a clinically significant, sudden or life threatening deterioration of the following system(s) required my full and direct attention, intervention and personal management. The time I documented below is in addition to time spent performing reported procedures but includes the following listed in this critical care notation. Medical Decision Making - Murphy Inquiry Pt receiving controlled substance: No Vital Signs: 11/30/21 11:19 Temperature 98.2 F Temperature Source Oral Pulse Rate [Left Radial] 74 Respiratory Rate 18 Blood Pressure [Right Arm] 119/48 L Blood Pressure Mean [Right Arm] 71 02 Sat by Pulse Oximetry 99 Oxygen Delivery Method Room Air - Lab Data Lab Results 11/30/21 11:30: Urine Opiates Screen Negative, Urine Methadone Screen Negative, Ur Barbituates Screen Negative, Ur Phencyclidine Scrn Negative, Ur Amphetamines Screen Negative, U Benzodiazepines Scrn Positive H, Urine Cocaine Screen Negative, U Marijuana (THC) Screen Negative 11/30/21 12:33: WBC 8.7, RBC 4.43, Hgb 13.5, Hct 40.5, MCV 91.4, MCH 30.4, MCHC 33.3, RDW 13.0, Plt Count 303, MPV 7.7, Neut % (Auto) 63.4, Lymph % (Auto) 25.7, Chester % (Auto) 8.4, Eos % (Auto) 2.0, Baso % (Auto) 0.5, Neut # (Auto) 5.5, Lymph # (Auto) 2.2, Chester # (Auto) 0.7, Eos # (Auto) 0.2, Baso # (Auto) 0.1 11/30/21 12:33: Sodium 140, Potassium 4.3, Chloride 104, Carbon Dioxide 33 H, Anion Gap 7.3, BUN 10, Creatinine 0.80, Estimated Creat Clear 100, Estimated GFR 79, Est GFR ( Amer) 96, Glucose 97, Calcium 8.8, Total Bilirubin 0.3, AST 31, ALT 16, Alkaline Phosphatase 51, C-Reactive Protein 15.7 H, Total Protein 6.6, Albumin 3.8, Globulin 2.8, Albumin/Globulin Ratio 1.4 11/30/21 12:33: ESR 26 H 11/30/21 12:33: Procalcitonin 0.035 Result diagrams: 11/30/21 12:33 11/30/21 12:33 Orders (Tests/Meds): ED MEDICATIONS Discontinued Medications Generic Name Dose Route Start Last Admin Trade Name Freq PRN Reason Stop Dose Admin Ketorolac Tromethamine 30 mg 11/30/21 13:21 Ketorolac 30mg/Ml Vial IV 11/30/21 13:22 ONCE ONE - CT Data CT Scan: Head Time Received: 13:[address] Reviewed: Yes: I have viewed the radiologist's interpretation Findings Narrative: Procedure(s): CT head/brain wo con Accession Number(s): [id number] cc: Fermin Paniagua MD; Alvaro Samano MD; Kari Alcala~ FINAL REPORT TECHNIQUE: Axial CT images were performed through the head. Coronal reformatted images were submitted. This study was performed with techniques to keep radiation doses as low as reasonably achievable (ALARA). Individualized dose reduction techniques using automated exposure control or adjustment of mA and/or kV according to the patient's size were employed. CLINICAL HISTORY: headache, blurry vision FINDINGS: The ventricles are normal in size. There is no evidence of hemorrhage. There is no mass or edema identified. There is no abnormal extra-axial fluid seen. There are mild changes of chronic bilateral maxillary and sphenoid sinusitis. IMPRESSION: No acute intracranial process. Reviewed, Interpreted and Dictated by Fermin Paniagua MD Transcribed by Butch James Authenticated by Fermin Paniagua MD on 11/30/2021 12:51:51 PM [facility] [place]
--- NOTE | 2021-11-30 11:47 | CT_ITS ---
FINAL REPORT TECHNIQUE: Axial CT images were performed through the head. Coronal reformatted images were submitted. This study was performed with techniques to keep radiation doses as low as reasonably achievable (ALARA). Individualized dose reduction techniques using automated exposure control or adjustment of mA and/or kV according to the patient's size were employed. CLINICAL HISTORY: headache, blurry vision FINDINGS: The ventricles are normal in size. There is no evidence of hemorrhage. There is no mass or edema identified. There is no abnormal extra-axial fluid seen. There are mild changes of chronic bilateral maxillary and sphenoid sinusitis. IMPRESSION: No acute intracranial process. Reviewed, Interpreted and Dictated by Fermin Paniagua MD Transcribed by Butch James Authenticated by Fermin Paniagua MD on 11/30/2021 12:51:51 PM [facility]
--- NOTE | 2021-11-30 12:06 | ECG_ITS ---
APPROVED REPORT Exam: Resting ECG HR:70 bpm ECG Measurements Heart Rate 70 AXES FL 158 P 68 QRSd 88 QRS 81 QT 392 T 68 QTc 412 Conclusion SINUS RHYTHM NORMAL ECG UNCONFIRMED REPORT Electronically signed by : Rickie Young MD 12/01/2021 19:23:09
[2021-11-30 12:44] LABS: Benzodiazepines Screen,Urine Positive ng/ml (<200)
[2021-11-30 12:45] LABS: Amphetamine/Metha Screen,Urine Negative ng/ml (<1000); Barbiturates Screen,Urine Negative ng/ml (<200)
[2021-11-30 12:46] LABS: Cannabinoid Screen,Urine Negative ng/ml (<50); Cocaine Screen,Urine Negative ng/ml (<300)
[2021-11-30 12:46] LABS: Basophils # 0.1 K/mm3 (0-0.2); Basophils % 0.5 % (0.1-2.0); Eosinophils # 0.2 K/mm3 (0.0-0.4); Hematocrit 40.5 % (37.0-47.0); Hemoglobin 13.5 g/dL (12.2-16.2); Lymphocytes # 2.2 K/mm3 (0.7-4.5); Lymphocytes % 25.7 % (10-50); Mean Corpuscular HGB Conc 33.3 g/dL (31.8-35.4); Mean Corpuscular Hemoglobin 30.4 pg (27.0-31.2); Mean Corpuscular Volume 91.4 fl (81-99); Mean Platelet Volume 7.7 fl (7.4-10.4); Monocytes # 0.7 K/mm3 (0.1-1.0); Monocytes % 8.4 % (1.7-9.3); Neutrophils # 5.5 K/mm3 (1.8-7.8); Neutrophils % 63.4 % (37.0-80.0); Platelet Count 303 K/mm3 (142-424); Red Blood Count 4.43 M/mm3 (4.20-5.40); White Blood Count 8.7 K/mm3 (4.8-10.8)
[2021-11-30 12:47] LABS: Methadone Screen,Urine Negative ng/ml (<300)
[2021-11-30 12:48] LABS: Opiate Screen,Urine Negative ng/ml (<300); Phencyclidine Screen,Urine Negative ng/ml (<25)
[2021-11-30 12:53] LABS: Alanine Aminotransferase 16 U/L (12-78); Albumin Level 3.8 g/dl (3.5-5.0); Albumin/Globulin Ratio 1.4 (1.1-1.8); Alkaline Phosphatase 51 U/L (38-126); Anion Gap 7.3 mEq/L (5-15); Aspartate Amino Transferase 31 U/L (14-36); Bilirubin,Total 0.3 mg/dl (0.2-1.3); Blood Urea Nitrogen 10 mg/dl (7-17); Calcium 8.8 mg/dl (8.4-10.2); Carbon Dioxide 33 mmol/L (22.0-30.0); Chloride 104 mmol/L (98-107); Creatinine Clearance Estimated 100 mL/min (50-200); Estimated Glomerular Filt Rate 79 ml/min (>60); GFR (African American) 96 ML/MIN (>60); Globulin 2.8 g/dL (1.3-3.2); Glucose 97 mg/dl (74-100); Potassium 4.3 mmoL/L (3.5-5.1); Sodium 140 mmol/L (136-145); Total Protein,Serum 6.6 g/dl (6.3-8.2)
[2021-11-30 12:59] LABS: C-Reactive Protein 15.7 mg/L (0-4)
[2021-11-30 13:12] LABS: Procalcitonin 0.035 ng/mL (0.0-2.0)
[2021-11-30 13:15] LABS: Erythrocyte Sedimentation Rate 26 mm/hr (0-20)
[2021-11-30 13:47] VITALS: BP 145/78; PULSE 78; RESP 16; TEMP 36.6; O2SAT 98
== END 2021-11-30 13:48 | disposition home or self-care (01) ==
PROVIDERS: Emergency Provider Emergency Medicine; PCP Physician Assistant
DX: H53.8 Other visual disturbances (principal); M54.2 Cervicalgia; R51.9 Headache, unspecified; F41.8 Other specified anxiety disorders; Z79.899 Other long term (current) drug therapy
CPT/HCPCS: 70450; 80053; 80305; 84145; 85025; 85651; 86140; 93005; 96372; 99283

== ENCOUNTER 2022-06-10 20:11 | Emergency (ER) | payer MEDICAID, SELFPAY ==
[2022-06-10 20:20] VITALS: BP 157/78; PULSE 89; RESP 21; TEMP 36.8; O2SAT 97; BMI 26.4
--- NOTE | 2022-06-10 21:15 | HMH.EDANX ---
Discharge Plan Disposition Patient Disposition: Home, Self-Care Condition: Good Prescriptions Prescriptions: New ondansetron 4 mg tablet,disintegrating 4 mg PO DAILY PRN (Reason: nausea and vomiting) 4 Days Qty: 7 0RF Rx Instructions: Please use one tab every 8 hours as needed for vomiting No Action buprenorphine-naloxone 8-2 mg tablet, sublingual 1 tab SUBLINGUAL BID clonazepam [Klonopin] 0.5 mg tablet 0.5 mg PO BID Qty: 60 0RF bupropion HCl 75 mg tablet 75 mg PO BID Qty: 60 0RF Rx Instructions: administer 6 hours apart hydroxyzine HCl 25 mg tablet See Rx Instructions .ROUTE .COMPLEX Qty: 90 2RF Dose Instruction: TAKE 1 TABLET BY MOUTH THREE TIMES DAILY NEEDED FOR ANXIETY Rx Instructions: TAKE 1 TABLET BY MOUTH THREE TIMES DAILY NEEDED FOR ANXIETY Referrals Follow up/Referrals: Lexa Burciaga MD [Primary Care Provider] - See instructions Activity Restrictions/Add. Instructions Additional Instructions/Restrictions: Please follow up with your primary care physician in 1-2 days for treatment of your anxiety. Please continue to do breathing excercises as discussed and use your vistaril as prescribed. You have been prescribed zofran and vistaril to use as prescribed. Please return if you have thoughts of wanting to harm yourself, abdominal pain, chest pain, difficulty breathing or any other concerns. Clinical Impressions Clinical Impression: Anxiety Instructions Patient Instructions: Anxiety Disorders, Anxiety and Panic Attacks (Alternative Therapy) Discharge ED Provider: Zehra Michaels General Chief Complaint: Anxiety Stated Complaint: nausea, anxiety, chills Time Seen by Provider: 06/10/22 20:20 Mode of Arrival: Ambulatory Limitations: No Limitations Description of Symptoms (Recalled from ER Triage Doc. by RN): Pt says she is feeling a panic attack coming on. She has been feeling anxious on and off since this morning and is becoming nauseous. She states she has been out of her anxiety medication for a week. History of Present Illness MD complaint: anxiety Onset (ago): hour(s) Symptoms: other (nauseated per her usual episodes) Severity: mild Quality: intermittent Place: home History of similar episodes: Yes Provoking factors: emotional stress Relieving factors: medication Exacerbating factors: nothing Associated symptoms: denies other symptoms Related Data Home Medications Medication Instructions Recorded Confirmed buprenorphine 8 mg-naloxone 2 mg 1 tab sublingual BID 12/08/21 12/08/21 sublingual tablet Previous Rx's Medication Instructions Recorded bupropion HCl 75 mg tablet 75 mg PO BID #60 tabs 12/13/21 clonazepam 0.5 mg tablet (Klonopin) 0.5 mg PO BID #60 tabs 12/13/21 hydroxyzine HCl 25 mg tablet See Rx Instructions .Route 05/16/22 .COMPLEX #90 tabs ondansetron 4 mg disintegrating 4 mg PO DAILY PRN nausea and 06/10/22 tablet vomiting 4 days #7 tabs Allergies Allergy/AdvReac Type Severity Reaction Status Date / Time No Known Allergies Allergy Verified 12/08/21 13:00 [facility] Social History Smoking Status: Current every day smoker alcohol intake: never substance use type: former substance user current occupational status: employed Travel in the last 8 weeks: None ROS Obtained: Yes All systems reviewed & no additional complaints except as documented Physical Exam General General appearance: alert and in no apparent distress Head Head exam: atraumatic and normocephalic Eye Eye exam: Present normal appearance and EOMI ENT ENT exam: Present normal exam, normal oropharynx and mucous membranes moist Neck Neck exam: Present normal inspection and full ROM Chest Chest inspection: Present normal inspection and symmetric chest wall rise Respiratory Respiratory exam: Present normal lung sounds bilaterally Cardiovascular Cardiovascular exa
[2022-06-10 21:33] VITALS: BP 145/78; PULSE 81; RESP 20; TEMP 36.8; O2SAT 97
== END 2022-06-10 21:34 | disposition home or self-care (01) ==
PROVIDERS: Emergency Provider Student in an Organized Health Care Education/Training Program; PCP Emergency Medicine
DX: F41.9 Anxiety disorder, unspecified (principal)
CPT/HCPCS: 99283

== ENCOUNTER 2022-06-20 08:46 | Emergency (ER) | payer MEDICAID, SELFPAY ==
[2022-06-20 09:11] VITALS: BP 110/57; PULSE 79; RESP 16; TEMP 36.8; O2SAT 97; BMI 26.4
--- NOTE | 2022-06-20 09:18 | EXP.UTC ---
Discharge Plan Disposition Patient Disposition: Home, Self-Care Condition: Good Prescriptions Prescriptions: New sulfacetamide sodium 10 % drops 1 drp ophthalmic (eye) Q3H Qty: 5 0RF Rx Instructions: Instill 1 drop q 3 hours while awake for the next 7 days. methylprednisolone 4 mg Tablets,Dose Pack 4 mg PO DIRECTED Qty: 21 0RF No Action buprenorphine-naloxone 8-2 mg tablet, sublingual 1 tab SUBLINGUAL BID clonazepam [Klonopin] 0.5 mg tablet 0.5 mg PO BID Qty: 60 0RF bupropion HCl 75 mg tablet 75 mg PO BID Qty: 60 0RF Rx Instructions: administer 6 hours apart hydroxyzine HCl 25 mg tablet See Rx Instructions .ROUTE .COMPLEX Qty: 90 2RF Dose Instruction: TAKE 1 TABLET BY MOUTH THREE TIMES DAILY NEEDED FOR ANXIETY Rx Instructions: TAKE 1 TABLET BY MOUTH THREE TIMES DAILY NEEDED FOR ANXIETY ondansetron 4 mg tablet,disintegrating 4 mg PO DAILY PRN (Reason: nausea and vomiting) 4 Days Qty: 7 0RF Rx Instructions: Please use one tab every 8 hours as needed for vomiting Referrals Follow up/Referrals: Lexa Burciaga MD [Primary Care Provider] - See instructions Activity Restrictions/Add. Instructions Additional Instructions/Restrictions: Use the eye drops as directed. Strict hand washing in the house hold, because conjunctivitis is very contagious. Follow up with your regular doctor. GO TO THE ER FOR ANY WORSENING SYMPTOMS OR CONCERNS Clinical Impressions Clinical Impression: Conjunctivitis Qualifiers: Conjunctivitis type: acute Acute conjunctivitis type: unspecified Laterality: left Qualified Code(s): H10.32 - Unspecified acute conjunctivitis, left eye Instructions Patient Instructions: How to Instill Eye Drops, Conjunctivitis, DI for Conjunctivitis Discharge ED Provider: Anil Mc [facility] [place], [place] HPI General Stated complaint: lt eye swelling Mode of Arrival: Ambulatory Source of Information: Patient Limitations: No Limitations Time Seen by Provider: 06/20/22 09:17 Description of Symptoms (Recalled from Triage Doc. by RN): pt comes in with c/o left eye swelling. pt states that she has done nothing different. she just woke up this morning and it was swollen shut. it is red and painful. HEENT Symptoms (Recalled from RN notes): Yes Resp Symptoms (Recalled from RN notes): No Skin Symptoms (Recalled from RN notes): No MS Symptoms (Recalled from RN notes): No Functional Status (Recalled from RN notes): n/a History of Present Illness Provider Complaint: She has had left eye matting and irritation for the past 2 days. She denies any injury or foreign body. She states that her left eye was matted together with yellow drainage this am. She states that her vision in the eye is normal. Related Data Home Medications Medication Instructions Recorded Confirmed buprenorphine 8 mg-naloxone 2 mg 1 tab sublingual BID 12/08/21 12/08/21 sublingual tablet Previous Rx's Medication Instructions Recorded bupropion HCl 75 mg tablet 75 mg PO BID #60 tabs 12/13/21 clonazepam 0.5 mg tablet (Klonopin) 0.5 mg PO BID #60 tabs 12/13/21 hydroxyzine HCl 25 mg tablet See Rx Instructions .Route 05/16/22 .COMPLEX #90 tabs ondansetron 4 mg disintegrating 4 mg PO DAILY PRN nausea and 06/10/22 tablet vomiting 4 days #7 tabs methylprednisolone 4 mg tablets in 4 mg PO DIRECTED #21 tabs 06/20/22 a dose pack sulfacetamide sodium 10 % eye drops 1 drp ophthalmic (eye) Q3H #5 mL 06/20/22 Allergies Allergy/AdvReac Type Severity Reaction Status Date / Time No Known Allergies Allergy Verified 06/20/22 09:14 Worker's Comp Is this a Worker's Comp case?: No PFSH PFSH Social History Smoking Status: Current every day smoker alcohol intake: never substance use type: former substance user current occupational status: employed Travel in the last 8 weeks: None ROS Obtained: Yes All
[2022-06-20 09:53] VITALS: BP 110/57; PULSE 79; RESP 16; TEMP 36.8
== END 2022-06-20 09:54 | disposition home or self-care (01) ==
PROVIDERS: Emergency Provider Nurse Practitioner Family; PCP Emergency Medicine
DX: H10.32 Unspecified acute conjunctivitis, left eye (principal)
CPT/HCPCS: 99212; G0463

== ENCOUNTER 2023-01-25 08:49 | Emergency (ER) | payer OTHER, MEDICAID, SELFPAY ==
[2023-01-25 08:54] VITALS: BP 106/64; PULSE 77; O2SAT 97
--- NOTE | 2023-01-25 09:00 | PC.NURSE ---
Dr. Atwood at
[2023-01-25 09:01] VITALS: BP 116/64; PULSE 85; O2SAT 97
[2023-01-25 09:02] VITALS: BP 106/64; PULSE 93; RESP 16; TEMP 36.7; O2SAT 98; BMI 23.3
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
--- NOTE | 2023-01-25 09:18 | PC.NURSE ---
Pt updated on plan of care. Additional warm blanket provided.
--- NOTE | 2023-01-25 09:41 | PC.NURSE ---
LEE Henriquez rounded on patient. Call light within reach. Pt requesting no needs at this time.
[2023-01-25 09:43] VITALS: BP 117/53; PULSE 69; O2SAT 98
[2023-01-25 10:00] VITALS: BP 112/53; PULSE 70; RESP 16; O2SAT 97
--- NOTE | 2023-01-25 10:31 | PC.NURSE ---
Dr. Atwood at BS for update on POC
[2023-01-25 10:37] VITALS: BP 112/53; PULSE 70; RESP 16; TEMP 36.7; O2SAT 97
== END 2023-01-25 10:41 | disposition home or self-care (01) ==
PROVIDERS: Emergency Provider Emergency Medicine; PCP Emergency Medicine
DX: S16.1XXA Strain of muscle, fascia and tendon at neck level, initial encounter (principal); S39.012A Strain of muscle, fascia and tendon of lower back, initial encounter; F17.200 Nicotine dependence, unspecified, uncomplicated; V48.0XXA Car driver injured in noncollision transport accident in nontraffic accident, initial encounter
CPT/HCPCS: 72040; 72070; 72100; 96372; 99284

== ENCOUNTER 2024-09-07 09:35 | Emergency (ER) | payer MEDICAID, SELFPAY ==
[2024-09-07 09:44] VITALS: BP 128/74; PULSE 86; RESP 18; TEMP 36.4; O2SAT 100; BMI 24.4
[2024-09-07 10:00] VITALS: BP 102/62; PULSE 83; O2SAT 100
--- NOTE | 2024-09-07 10:18 | XR_ITS ---
FINAL REPORT CLINICAL HISTORY: lumbar pain COMPARISON: 01/25/2023 FINDINGS: 3 views of the lumbar spine were obtained. There is no evidence of fracture. There is no malalignment. The vertebrae are normal in height. There is mild degenerative change. Small osteophytes are noted. No paraspinous soft tissue abnormalities identified. IMPRESSION: Mild degenerative change without acute bony abnormality. Reviewed, Interpreted and Dictated by Ousmane Pro III, MD Transcribed by Ely Bustos Authenticated and [facility]
--- NOTE | 2024-09-07 10:18 | XR_ITS ---
FINAL REPORT CLINICAL HISTORY: lumbar pain COMPARISON: None FINDINGS: SINGLE VIEW PELVIS: A single view of the pelvis was obtained. There is no acute fracture or dislocation. Vizualized joint spaces are normally aligned. Soft tissues are unremarkable. IMPRESSION: No acute bony abnormality. Reviewed, Interpreted and Dictated by Ousmane Pro III, MD Transcribed by Ely Bustos Authenticated and [facility]
--- NOTE | 2024-09-07 10:29 | HMH.EDGENADL ---
Discharge Plan Disposition Patient Disposition: Home, Self-Care Condition: Good Prescriptions Prescriptions: New methocarbamol 750 mg tablet 750 mg PO Q6H Qty: 30 0RF lidocaine [Aspercreme (lidocaine)] 4 % adhesive patch,medicated 1 patch topical DAILY Qty: 5 0RF No Action hydroxyzine HCl 25 mg tablet 25 mg PO TID PRN (Reason: itching) 30 Days Qty: 90 2RF sertraline 100 mg tablet 100 mg PO DAILY Qty: 30 0RF Referrals Follow up/Referrals: Jasmeet Tyson MD [Primary Care Provider] - See instructions Activity Restrictions/Add. Instructions Additional Instructions/Restrictions: You were evaluated for low back pain today. There is no sign that your spinal cord is involved or you are having sciatica. You will need to cycle Tylenol and ibuprofen every 3 hours, take the Robaxin 4 times per day and apply lidocaine patch daily for the next 5 days. You will need to follow-up with your primary in the next 3 days for reevaluation and referral to physical therapy for continued management. Do not lift with your back or do any twisting motions while lifting items for the next 2 weeks. Is important to keep active and do your best to not lay still while you are having this pain as it can make it worse. Please return to ED if your symptoms worsen, change in location, change in severity, new symptoms develop or if you become concerned for your health. Clinical Impressions Clinical Impression: Back strain Qualifiers: Encounter type: initial encounter Qualified Code(s): S39.012A - Strain of muscle, fascia and tendon of lower back, initial encounter Instructions Patient Instructions: DI for Low Back Pain Print Language Print Language: Luxembourgish Discharge ED Provider: Kaylin Ashton Adult [facility] General Chief complaint: Back Pain/Injury Stated complaint: back pain Time Seen by Provider: 09/07/24 09:52 Mode of Arrival: Ambulatory Source of Information: Patient Limitations: No Limitations Description of Symptoms (Recalled from ER Triage Doc. by RN): back pain x1wk fell off porch. History of Present Illness HPI narrative: Radha Parham is a 44 y/o female presenting with back pain. Patient states she has had increased lower back pain over the past week and has tried intermittent use of Tylenol, ibuprofen, as well as an oxycodone she had. 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 Patient denies bowel or bladder incontinence, numbness, paresthesias. Patient denies any acute trauma, heavy lifting, twisting injuries prior to the onset of this pain. Related Data Previous Rx's ?Medication ?Instructions ?Recorded hydroxyzine HCl 25 mg tablet 25 mg PO TID PRN itching 30 days 03/31/24 #90 tabs sertraline 100 mg tablet 100 mg PO DAILY #30 tabs 03/31/24 lidocaine 4 % topical patch 1 patch topical DAILY #5 ea 09/07/24 (Aspercreme (lidocaine)) methocarbamol 750 mg tablet 750 mg PO Q6H #30 tabs 09/07/24 Allergies Allergy/AdvReac Type Severity Reaction Status Date / Time mirtazapine AdvReac Intermediate Nightmare Verified 03/31/24 14:15 [facility] Disclaimer: The information contained in this section may have been updated after the patient was seen, as this information can be updated by other users. Surgical History H/O: hysterectomy Social History Smoking Status: Current every day smoker alcohol intake: never substance use type: former substance user current occupational status: employed Other Medical History Have you received the Flu Vaccine for this season: No Have you received the Pneumonia Vaccine: No ROS Obtained: Yes All systems reviewed & no additional complaints except as documented Physical Exam General General appearance: alert and in no apparent distress Respiratory Respiratory exam: Present normal lung sounds bilaterally; Absent respiratory distress Cardiovascular Cardiovascular exam: Present regular rate and normal rhythm; Absent JVD Abdominal Exam Abdominal exam: Present soft and normal bowel sounds; Absent distention, tenderness or guarding Extremities Exam Extremities exam: Present normal inspection, full ROM and normal capillary refill; Absent edema, joint swelling or calf tenderness Back Exam Back exam: Present normal inspection, tenderness (lumbar and SI joints bilaterally) and paraspinal tenderness; Absent straight leg raise (R) or straight leg raise (L) Neurological Exam Neurological exam: Present alert and oriented X3 Psychiatric Psychiatric exam: Present normal affect and normal mood Medical Decision Making Medical Records Screening: Per USPSTF and CDC recommendations, given the prevalence of disease in our region, it is our hospital?s policy to screen for HIV and viral Hepatitis for all patients aged 18 and over and those with ongoing risk factors. Murphy Inquiry Pt receiving controlled substance: No Vital Signs: 09/07/24 09:44 09/07/24 10:00 09/07/24 10:59 Temperature 97.6 F Temperature Source Oral Pulse Rate 83 86 Pulse Rate [Right Radial] 86 Respiratory Rate 18 Blood Pressure 102/62 L 114/70 Blood Pressure [Right Arm] 128/74 Blood Pressure Mean 84 Blood Pressure Mean [Right Arm] 92 02 Sat by Pulse Oximetry 100 100 96 Oxygen Delivery Method Room Air Room Air Room Air Orders (Tests/Meds): ED MEDICATIONS Discontinued Medications Generic Name Dose Route Start Last Admin Trade Name Freq PRN Reason Stop Dose Admin Acetaminophen 1,000 mg 09/07/24 10:31 09/07/24 10:44 Acetaminophen 500mg Tab PO 09/07/24 10:32 1,000 mg ONCE ONE Administration Ibuprofen 800 mg 09/07/24 10:32 09/07/24 10:45 Ibuprofen 800 Mg Tablet PO 09/07/24 10:33 800 mg ONCE ONE Administration Lidocaine 1 each 09/07/24 10:31 09/07/24 10:45 Lidocaine 5% Transdermal Patch TP 09/07/24 10:32 1 each ONCE ONE Administration Methocarbamol 1,000 mg 09/07/24 10:32 09/07/24 10:45 Methocarbamol 500mg Tablet PO 09/07/24 10:33 1,000 mg ONCE ONE Administration ORDERS Category Date Time Status Pelvis XR 1-2 views [XR pelvis 1-2V] Stat Exams 09/07/24 10:18 Taken XR lumbar spine 2-3V Stat Exams 09/07/24 10:18 Taken HIV (1&2) Antibody Rapid Stat Lab 09/07/24 09:49 Ordered Hep C Ab with Reflex to RNA Stat Lab 09/07/24 09:49 Ordered Medical Decision Narrative: In summary, patient is a 44-year-old female presenting with lower back pain. Patient has no red flag symptoms. Differential diagnosis includes was not limited to, muscular strain, spinal cord compression, spinal fracture, pelvic fracture or malalignment, sacroiliitis, sciatica, among others. Based on patient's symptoms, she will be evaluated with XR of her pelvis and lumbar spine. Patient symptomatically managed with Tylenol, ibuprofen, Robaxin, lidocaine patch. Patient be noted the patient's past medical history significant for bilateral hip pain, tobacco use, substance use disorder, back strain and neck strain. This history complicates the patient's care as her symptoms are not well-controlled. XR personally reviewed by me and negative for evidence of fracture, malalignment of lumbar spine or pelvis. Moderate stool burden noted with no visualized obstructive bowel gas pattern on aspect of colon visualized. On reevaluation, patient continues to have moderate pain, however she is able to ambulate. Patient advised to follow-up with her primary for physical therapy. Patient will be discharged with muscle relaxers, lidocaine patches and advised to use Tylenol and ibuprofen as supplements for pain control. Return precautions given. Patient discharged in stable condition. Kaylin Ahston MD PGY-3, Emergency Medicine Critical Care Critical Care Time Critical Care Time: No
[2024-09-07] MEDS: ACETAMINOPHEN 500MG TAB 1000 MG PO (10:44)
[2024-09-07] MEDS: IBUPROFEN 800 MG TABLET PO (10:45)
[2024-09-07] MEDS: METHOCARBAMOL 500MG TABLET 1000 MG PO (10:45)
[2024-09-07] MEDS: LIDOCAINE 5% TRANSDERMAL PATCH 1 EACH TP (10:45)
[2024-09-07 10:59] VITALS: BP 114/70; PULSE 86; O2SAT 96
--- NOTE | 2024-09-07 11:17 | PC.NURSE ---
pt ambulated without any difficulty.
[2024-09-07 11:18] VITALS: BP 128/74; PULSE 86; RESP 18; TEMP 36.4
== END 2024-09-07 11:19 | disposition home or self-care (01) ==
PROVIDERS: Emergency Provider Student in an Organized Health Care Education/Training Program; PCP Family Medicine
DX: S39.012A Strain of muscle, fascia and tendon of lower back, initial encounter (principal); W17.89XA Other fall from one level to another, initial encounter; Y93.9 Activity, unspecified; Y92.9 Unspecified place or not applicable
CPT/HCPCS: 72100; 72170; 99283

== ENCOUNTER 2025-03-22 20:29 | Emergency (ER) | payer MEDICAID, SELFPAY ==
--- NOTE | 2025-03-22 20:37 | ECG_ITS ---
APPROVED REPORT Exam: Resting ECG HR:81 bpm ECG Measurements Heart Rate 81 AXES ND 156 P 1 QRSd 84 QRS 3 QT 349 T 14 QTc 386 Conclusion Sinus rhythm T wave inversions in 3 with no reciprocal change. Nonspecific Electronically signed by : HAMMAD VERDUZCO, 03/23/2025 18:10:09
--- OUTSIDE RECORDS SUMMARY | 2025-03-22 20:37 | XMS_ITS | Clinical Summary ---
Author Organization Healthcare Address [address] [place] [address] Care Team Providers Care Lab Head Name Role Phone Kari Alcala Primary Care Provider [phone] Allergies Active Allergy Reactions Criticality Noted Date Comments Bee Venom Anaphylaxis High 08/01/2021 Ketamine Rash Medium 07/24/2024 Medications cyclobenzaprine (Flexeril) 10 MG tablet Take 1 tablet (10 mg total) by mouth 3 (three) times a day if needed for muscle spasms for up to 5 days. 15 tablet Active Additional Information Patient not taking.Reported on 07/24/2024 hydrOXYzine HCl (Atarax) 25 MG tabletIndicatio ns:Anxiety Take 1 tablet (25 mg) by mouth 1 (one) time each day if needed for anxiety. Active Active Problems No known active problems Family History Medical History Relation Name Comments Lung cancer Maternal Grandmother Brain cancer Mother Relation Name Status Comments Maternal Grandmother Mother Social History Tobacco Use Types Packs/Day Years Used Date Smoking Tobacco: Former Cigarettes 1 32.5 S tarted: 1992 Smokeless Tobacco: Never Tobacco Cessation:Counseling Given: No Alcohol Use Standard Drinks/Week Comments Not Asked 0 (1 standard drink = 0.6 oz pur e alcohol) Comments Unknown Sex and Gender Information Value Date Recorded Sex Assigned at Not on file Legal Sex Female 7:53 PM EDT Gender Identity Not on file Sexual Orientation Not on file Last Filed Vital Signs Vital Sign Reading Time Taken Comments Blood Pressure 149/78 07/24/2024 2:02 PM EDT Pulse 97 07/24/2024 2:02 PM EDT Temperature 36.8 C (98.2 F) 08/01/2021 1:11 PM EDT Respiratory Rate 18 08/01/2021 1:11 PM EDT Oxygen Saturation 96% 08/01/2021 1:11 PM EDT Inhaled Oxygen Concentration - - Weight 64.9 kg (143 lb 1.3 oz) 08/01/2021 10:47 AM EDT Height - - Body Mass Index - - Plan of Treatment Health Maintenance Due Date Last Done Comments Dental Prophylaxis 1980 Dental X-Ray: Bitewings 1980 [facility]-Depression Screening 1980 [facility]-HIV Screening 1980 [facility]-Hepatitis C Screening 1980 [facility]-/Child/Adol SDOH Screenings 1980 [facility]-Varicella Vaccines (1 of 2 - 13+ 2-dose series) 1993 HPV Vaccines (1 - 3-dose series) 1995 [facility]- SDOH Screenings 1998 [facility]-Adult SDOH Screenings 1998 [facility]-DTaP,Tdap,and Td Vaccines (1 - Tdap) 1999 [facility]-Hepatitis B Vaccines (1 of 3 - 19+ 3-dose series) 1999 [id number] Vaccine ( - 2023- season) 2024 Dental Oral Exam 01/23/2025 07/24/2024 [facility]-Influenza Vaccine (Season Ended) 2025 Dental X-Ray: Full Mouth 07/25/2027 07/24/2024 [facility]-Zoster Vaccines (1 of 2) 2030 [facility]-Cervical Cancer Screening Discontinued [facility]-HPV/Cotest Discontinued 02/13/1995 [facility]-Pap Smear Discontinued 02/13/1995 [facility]-Hepatitis A Vaccines Aged Out 018, 01/05/2014 No longer eligible based on patient's age to complete this topic [facility]-HIB Vaccines Aged Out No longer e ligible based on patient's age to complete this topic [facility]-IPV Vaccines Aged Out No longer e ligible based on patient's age to complete this topic [facility]-Pneumococcal Vaccine: Pediatrics (0 to 5 Years) and At-Risk Patients (6 to 49 Years) Aged Out No longer eligible b ased on patient's age to complete this topic [facility]-Rotavirus Vaccines Aged Out No lo nger eligible based on patient's age to complete this topic Procedures Procedure Name Priority Date/Time Associated Diagnosis Comments PANORAMIC RADIOGRAPHIC IMAGE Routine 07/24/2024 1:30 PM EDT Encounter for dental examination COMPREHENSIVE ORAL EVALUATION - NEW OR ESTABLISHED PATIENT Routine 07/24/2024 1:30 PM EDT Encounter for dental examination CYTO DATA CONVERSION Routine 02/13/1995 12:00 AM EDT from Last 3 Months or Most Recently Relevant to Health Maintenance Results * Cytology (02/13/1995 12:00 AM EDT) 02/13/1995 02/14/1995 Narrative [facility] - 02/27/1995 12:00 AM EDT [facility] MR #: [id number] [facility] TAM[place], [place] [address] 1980 (Age: 14) FW Collect Date: 02/13/1995 00:00 Receipt Date: 02/14/1995 00:00 Page 1 DEPARTMENT OF PATHOLOGY AND LABORATORY MEDICINE CYTOPATHOLOGY REPORT Email: [email or web address] * Converted Case * This report may not match the original report format ATTENDING MD/Practitioner: Vaughn Lance MD Service: OB Location: Reported: 02/27/1995 00:00 Collected: 02/13/1995 00:00 INTERPRETATION CERVICAL SCRAPE/ENDOCERVICAL SWAB WITHIN NORMAL LIMITS. SATISFACTORY FOR INTERPRETATION. Electronically Signed Out JAYY Andrew (ASCP) Brianna Ashley MD Cervical cytology is a screening test primarily for squamous cancers and precursors and has associated false negative and positive results. New technologies such as liquid based sampling may decrease but will not eliminate all false negative results. Regular screening and follow-up of unexplained clinical signs and symptoms are recommended to minimize false negative results. Please see the ASCCP website (www.asccp.org) for followup recommendations. If HPV testing was requested, correlation with the results is suggested (please call Microbiology at [phone] for results). CLINICAL INFORMATION: Menstrual History: {Not Provided} Date of Last Menstrual Period: {Not Provided} SPECIMEN DESCRIPTION: A: CERVICAL/VAGINAL SMEAR, PAP ICD: F: {Not Entered} SNOMED CODES: 1; [id number] In cases where a pathologist has signed out the report, the service has been rendered in part by a resident. The signing pathologist has performed and is responsible for the reported pathologic evaluation. us Historical Provider MD LAB PATHOLOGY ORDERABLES Final Result [facility] from Last 3 Months or Most Recently Relevant to Health Maintenance Insurance [facility] MEDICAID [employer] Care Teams Lab Head Relationship Specialty Start Date End Date Kari Alcala PA [address] [place] [address] PCP - General 08/01/21
[2025-03-22 20:38] VITALS: BP 128/78; PULSE 83; RESP 16; TEMP 37.2; O2SAT 98; BMI 25.7
--- NOTE | 2025-03-22 20:48 | XR_ITS ---
PROCEDURE INFORMATION: Exam: XR Chest Exam date and time: 03/22/2025 8:55 PM Age: 44 years old Clinical indication: Other: Lightheaded; Additional info: Light headed, le edema TECHNIQUE: Imaging protocol: Radiologic exam of the chest. Views: 1 view. COMPARISON: CR XR CHEST 2V 10/18/2021 9:07 PM FINDINGS: Lungs: Unremarkable. No consolidation. Pleural spaces: Unremarkable. No pleural effusion. No pneumothorax. Heart/Mediastinum: Unremarkable. No cardiomegaly. Bones/joints: Unremarkable. IMPRESSION: No acute findings.
--- NOTE | 2025-03-22 20:50 | ED_ITS ---
Discharge Plan Disposition Patient Disposition: Home, Self-Care Prescriptions Prescriptions: No Action hydroxyzine HCl 25 mg tablet 25 mg PO TID PRN (Reason: itching) 30 Days Qty: 90 2RF sertraline 100 mg tablet 100 mg PO DAILY Qty: 30 0RF methocarbamol 750 mg tablet 750 mg PO Q6H Qty: 30 0RF lidocaine [Aspercreme (lidocaine)] 4 % adhesive patch,medicated 1 patch topical DAILY Qty: 5 0RF Referrals Follow up/Referrals: Jasmeet Tyson MD [Primary Care Provider, Internal Medicine] - See instructions Activity Restrictions/Add. Instructions Additional Instructions/Restrictions: Follow-up with your family doctor as needed for this visit to the emergency department. Be sure to stay plenty hydrated. Clinical Impressions Clinical Impression: Light headedness, Heat exhaustion, Dependent edema Print Language Print Language: Occitan Discharge ED Provider: Yosvany Morales General Adult HPI General Chief complaint: Dizziness Stated complaint: Lightheaded,feet and legs swollen Time Seen by Provider: 03/22/25 20:39 Mode of Arrival: Ambulatory Source of Information: Patient Description of Symptoms (Recalled from ER Triage Doc. by RN): Pt presents for eval of BLE swelling with associated dizziness and blurred vision that began this AM. Pt denies CP, SOA, or cardiac HX. History of Present Illness HPI narrative: Please note that above description of symptoms, in this electronic medical record under categorization of recalled from ER triage doctor by RN are reflective of an initial nursing assessment, however, is not reflective of my full history and physical exam that was personally taken and clarified. Consequentially, this preceding description of symptoms, which may include the patient's categorized chief complaint in the EMR, do not reflect my personal clinical impression, and the ultimate description of history of present illness and patient stated complaints should be deferred to this section of the note. Unless stated otherwise or congruent with this section of the note, additional signs, symptoms, or incongruence should be interpreted as inaccurate with my clinical impression. Related Data Previous Rx's ?Medication ?Instructions ?Recorded hydroxyzine HCl 25 mg tablet 25 mg PO TID PRN itching 30 days 03/31/24 #90 tabs sertraline 100 mg tablet 100 mg PO DAILY #30 tabs lidocaine 4 % topical patch 1 patch topical DAILY #5 e a 09/07/24 (Aspercreme (lidocaine)) methocarbamol 750 mg tablet 750 mg PO Q6H #30 tabs 11/30 Allergies Allergy/AdvReac Type Severity Reaction Status Date / Time mirtazapine AdvReac Intermediate Nightmare Verified 03/31/24 14:15 [facility] Disclaimer: The information contained in this section may have been updated after the patient was seen, as this information can be updated by other users. Surgical History H/O: hysterectomy Social History Smoking Status: Current every day smoker alcohol intake: never substance use type: former substance user current occupational status: employed Travel in the last 8 weeks?: None Have you lived/traveled outside [place] in past 30 days?: No Contact w/someone who lives/traveled outside [place] past 30 days?: No Exposure to someone with infectious disease in past 14 days?: No Do you have a fever (greater than 100.4 F or 38 C)?: No Have you tested positive for COVID-19?: No Exposed to someone with COVID-19 in past 14 days?: No Do you have a sore throat?: No Do you have a cough?: No Do you have any weakness?: No Do you have any diarrhea?: No Are you experiencing any unusual bleeding?: No Do you have any muscle aches/pain?: No Do you have any abdominal pain?: No Are you experiencing loss of taste or smell?: No Other Medical History Have you received the Flu Vaccine for this season: No Have you received the Pneumonia Vaccine: No ROS Obtained: Yes All systems reviewed & no additional complaints except as documented Physical Exam General General appearance: alert and in no apparent distress Head Head exam: atraumatic and normocephalic Eye Eye exam: Present normal appearance, PERRL and EOMI Neck Neck exam: Present normal inspection, full ROM and trachea midline Respiratory Respiratory exam: Present normal lung sounds bilaterally; Absent respiratory distress, wheezes, stridor, accessory muscle use or prolonged expiratory phase Cardiovascular Cardiovascular exam: Present regular rate, normal rhythm, normal heart sounds and other (Pulses equal symmetric in upper and lower extremities) Abdominal Exam Abdominal exam: Present soft; Absent distention, tenderness or pulsatile mass Extremities Exam Extremities exam: Present edema (Minimal 1+ pitting edema) Neurological Exam Neurological exam: Present alert, oriented X3 and CN II-XII intact; Absent motor sensory deficit Skin Skin exam: Present warm and dry; Absent diaphoresis or erythema Medical Decision Making Medical Records Medical records reviewed: Yes I reviewed the patient's medical records. Screening: Per USPSTF and CDC recommendations, given the prevalence of disease in our region, it is our hospital?s policy to screen for HIV and viral Hepatitis for all patients aged 18 and over and those with ongoing risk factors. Murphy Inquiry Pt receiving controlled substance: No Murphy was queried for this patient: No Vital Signs: 03/22/25 20:38 03/22/25 21:00 Temperature 98.9 F Temperature Source Oral Pulse Rate 71 Pulse Rate [Radial] 83 Respiratory Rate 16 16 Blood Pressure 137/86 Blood Pressure [Right Arm] 128/78 Blood Pressure Mean [Right Arm] 94 Blood Pressure Position [Right Arm] Sitting 02 Sat by Pulse Oximetry 98 93 L Oxygen Delivery Method Room Air Lab Data Lab Results 03/22/25 20:37: WBC 10.5, RBC 4.07 L, Hgb 13.1, Hct 39.1, MCV 96.1, MCH 32.2 H, MCHC 33.5, RDW 12.4, Plt Count 288, MPV 10.8 H, Neut % (Auto) 62.9, Lymph % (Auto) 24.4, Dane % (Auto) 9.7 H, Eos % (Auto) 2.2, Baso % (Auto) 0.4, Neut # (Auto) 6.6, Lymph # (Auto) 2.6, Dane # (Auto) 1.0, Eos # (Auto) 0.2, Baso # (Auto) 0.0, PT 10.5, INR 0.94, APTT 26.8, Sodium 136, Potassium 3.8, Chloride 102, Carbon Dioxide 33 H, Anion Gap 4.8 L, BUN 13, Creatinine 0.80, Estimated Creat Clear 96, Estimated GFR 78, Est GFR ( Amer) 94, Glucose 94, Hemoglobin A1c 5.1, Calcium 9.9, Magnesium 1.9, Total Bilirubin 0.4, AST 31, ALT 23, Alkaline Phosphatase 52, Troponin I < 0.01, NT-Pro-B Natriuret Pep 50.2, Total Protein 7.2, Albumin 4.4, Globulin 2.8, Albumin/Globulin Ratio 1.6, T riglycerides 160 H, Cholesterol 254 H, LDL Cholesterol Direct 151.21 H, VLDL Cholesterol 32, HDL Cholesterol 46, Cholesterol/HDL Ratio 5.5 H, Thyroxine (T4) 8.1 03/22/25 20:37 03/22/25 20:37 Orders (Tests/Meds): ED MEDICATIONS Generic Name Dose Route Start Last Admin Trade Name Freq PRN Reason Stop Dose Admin Sodium Chloride 1,000 mls @ 999 mls/hr 03/22/25 20:47 03/22/25 20:53 Sod Chlor 0.9% 1000ml Bag IV 03/22/25 21:47 999 mls/hr .Q1H1M ONE Administration ORDERS Category Date Time Status XR chest portable Stat Exams 03/22/25 20:48 Taken Complete Blood Count Auto Diff Stat Lab 03/22/25 20:37 Completed Comprehensive Metabolic Panel Stat Lab 03/22/25 20:37 Results Hemoglobin A1C Stat Lab 03/22/25 20:37 Completed Lipid Panel Stat Lab 03/22/25 20:37 Results Magnesium Stat Lab 03/22/25 20:37 Results NT Pro Brain Natriuretic Pep. Stat Lab 03/22/25 20:37 Results PT INR [Prothrombin Time INR] Stat Lab 03/22/25 20:37 Completed PTT [Activated Partial Thrombo Time] Stat Lab 03/22/25 20:37 Completed T4 (Thyroxine) Stat Lab 03/22/25 20:37 Results TSH [Thyroid Stimulating Hormone] Stat Lab 03/22/25 20:37 Results Troponin I Q3H Lab 03/22/25 23:48 Ordered Troponin I Q3H Lab 03/23/25 02:48 Ordered Troponin I Stat Lab 03/22/25 20:37 Results Medical Decision Narrative: 44-year-old female history of anxiety and panic presenting with multiple complaints. She states that throughout today, she has had lower extremity swelling, felt lightheaded, dizzy, off balance, intermittently having blurry vision. No unilateral weakness, falling to 1 side or the other, unilateral vision changes, chest pain, but states that she feels generally weak, having palpitations with exertion. States she is never felt like this in her life. Currently just feels worn out and tired. Not currently having any other symptoms other than the lower extremity swelling. Came in for further evaluation. She does state that she has been on her feet all day, working in the heat, does not drink a lot of water admittedly. History was obtained via conversation with patient. On arrival, patient hemodynamically stable, alert, oriented x4, appropriate, GCS 15, moving all extremities spontaneously, pupils equal and reactive to light. Full physical exam performed and significant for very clinically well-appearing female who is in no acute distress. Bilateral lower extremities have minimal 1+ pitting edema. Pulses equal and symmetric in lower extremities. Neurovascularly intact upper and lower extremities, neurologically intact including cranial nerves, motor and sensory exams. Cardiac exam without murmurs gallops or rubs. Lungs are clear bilaterally. Differential includes metabolic abnormality endocrinologic abnormality, vasovagal, dehydration, heat exhaustion, orthostasis, CHF, less likely to be ACS or DE given no chest pain, less likely to be CVA given bilateral and nonresidual symptoms. Patient placed on continuous cardiac monitoring and continuous pulse ox with initial blood pressure 128/78, heart rate 3, saturation 98% on room air. Independent interpretation of EKG shows sinus rhythm 81 bpm with FL 156 QRS 84, QTc 386. Normal axis no acute ischemic change. No electrical abnormalities.. Patient was given fluids for symptomatic management and correction of underlying abnormalities. Workup independently interpreted and significant for Not actionable hematologic labs including CBC, chemistry, coags, troponin, BNP. Patient's cholesterol is elevated consistent with hyperlipidemia. Of imaging, no acute intrathoracic process. No pneumothorax, no evidence of pulmonary edema or pleural effusions. On reevaluation, patient still resting as she was at baseline, no real change. Given patient presentation, workup, history, this most likely represents heat exhaustion, dependent edema. Because patient at baseline without signs or symptoms of clinical decompensation, deemed appropriate for discharge. Results were relayed to patient who voiced understanding and were agreeable to outpatient management and follow up. I discussed my clinical impression with patient and answered all questions. At this time, the evidence for any other entities in the differential is insufficient to warrant any further testing or ED observation. This was explained as well. Advisory was given that persistent or worsening symptoms require further evaluation. I confirmed the understanding of this discussion. Test Conductor disclaimer Much of this encounter note is an electronic gas combustion engineer spoken language to printed text. Electronic gas combustion engineer of the spoken language may permit errors. Although I have reviewed the note, some errors may still exist. Critical Care Critical Care Time Critical Care Time: No
[2025-03-22] MEDS: 0.9 % SODIUM CHLORIDE 1000ML 1,000 ML 999 ML IV (20:53)
[2025-03-22 21:00] VITALS: BP 137/86; PULSE 71; RESP 16; O2SAT 93
[2025-03-22 21:00] LABS: Alanine Aminotransferase 23 U/L (12-78); Albumin Level 4.4 g/dl (3.5-5.0); Albumin/Globulin Ratio 1.6 (1.1-1.8); Alkaline Phosphatase 52 U/L (38-126); Anion Gap 4.8 mEq/L (5-15); Aspartate Amino Transferase 31 U/L (14-36); Bilirubin,Total 0.4 mg/dl (0.2-1.3); Blood Urea Nitrogen 13 mg/dl (7-17); Calcium 9.9 mg/dl (8.4-10.2); Carbon Dioxide 33 mmol/L (22.0-30.0); Chloride 102 mmol/L (98-107); Chol/HDL Ratio 5.5 (1-3.5); Cholesterol 254 mg/dl (140-200); Creatinine Clearance Estimated 96 mL/min (50-200); Estimated Glomerular Filt Rate 78 ml/min (>60); GFR (African American) 94 ML/MIN (>60); Globulin 2.8 g/dL (1.3-3.2); Glucose 94 mg/dl (74-100); HDL Cholesterol 46 mg/dl (40-60); Magnesium 1.9 mg/dl (1.6-2.3); Potassium 3.8 mmoL/L (3.5-5.1); Sodium 136 mmol/L (136-145); Total Protein,Serum 7.2 g/dl (6.3-8.2); Triglycerides 160 mg/dl (30-150); VLDL Cholesterol 32 mg/dL (0-40)
[2025-03-22 21:01] LABS: Basophils % 0.4 % (0.1-2.0); Eosinophils # 0.2 Kmm3 (0.0-0.4); Eosinophils % 2.2 % (0.1-12.0); Hematocrit 39.1 % (37.0-47.0); Hemoglobin 13.1 g/dL (12.2-16.2); Immature Granulocytes # 0.04 10^3uL; Immature Granulocytes % 0.4 %; Lymphocytes # 2.6 K/mm3 (0.7-4.5); Lymphocytes % 24.4 % (10-50); Mean Corpuscular HGB Conc 33.5 g/dL (31.8-35.4); Mean Corpuscular Hemoglobin 32.2 pg (27.0-31.2); Mean Corpuscular Volume 96.1 fl (81-99); Mean Platelet Volume 10.8 fl (7.4-10.4); Monocytes % 9.7 % (1.7-9.3); Neutrophils # 6.6 K/mm3 (1.8-7.8); Neutrophils % 62.9 % (37.0-80.0); Nucleated Red Blood Cells # 0 10^3/uL; Nucleated Red Blood Cells % 0 %; Platelet Count 288 K/mm3 (142-424); Red Blood Count 4.07 M/mm3 (4.20-5.40); Red Cell Distribution Width 12.4 % (11.5-17.5); Red Cell Distribution Width-SD 43.8 fL; White Blood Count 10.5 K/mm3 (4.8-10.8)
[2025-03-22 21:09] LABS: Activated Partial Thrombo Time 26.8 seconds (22.8-30.6); INR 0.94 (0.9-1.1); Prothrombin Time 10.5 seconds (10.1-12.5)
[2025-03-22 21:11] LABS: Direct LDL Cholesterol 151.21 mg/dL (100-129)
[2025-03-22 21:14] LABS: NT Pro Brain Natriuretic Pep. 50.2 pg/mL (0-125)
[2025-03-22 21:15] LABS: Troponin I < 0.01 ng/ml (0.00-0.034)
[2025-03-22 21:19] LABS: T4 (Thyroxine) 8.1 ug/dl (5.53-11.0)
[2025-03-22 21:22] LABS: Hemoglobin A1C 5.1 % (4.0-6.0)
[2025-03-22 21:33] LABS: Thyroid Stimulating Hormone 2.23 uIU/mL (0.465-4.68)
[2025-03-22 21:45] VITALS: BP 116/65; PULSE 62; RESP 16; TEMP 37.2; O2SAT 95
== END 2025-03-22 21:46 | disposition home or self-care (01) ==
PROVIDERS: Emergency Provider Emergency Medicine; PCP Family Medicine
DX: T67.5XXA Heat exhaustion, unspecified, initial encounter (principal); R60.0 Localized edema; R42 Dizziness and giddiness; F17.210 Nicotine dependence, cigarettes, uncomplicated
CPT/HCPCS: 71045; 80053; 80061; 83036; 83735; 83880; 84436; 84443; 84484; 85025; 85610; 85730; 93005; 96360; 99284; J7030